=== PATIENT | male | born 1940 | race Caucasian/White ===

== ENCOUNTER 2019-03-02 17:00 | Inpatient (IN) ==
[2019-03-02] MEDS ORDERED: DEXTROSE 50% 50 ML SYRINGE IV ONE ×2 (17:42→20:05)
[2019-03-02] MEDS ORDERED: SODIUM CHLORIDE 0.9% 1000ML 1,000 ML IV SCH (17:45)
--- NOTE | 2019-03-02 18:37 | XRay Report ---
XR chest 1V portable CLINICAL HISTORY: 78 years-old Male presenting with Chest Pain. TECHNIQUE: Portable upright AP view of the chest was obtained. COMPARISON: 05/26/2018. FINDINGS: Atherosclerosis of the aortic arch. Cardiac silhouette normal in size. Persistent elevation of the ri ght hemidiaphragm with persistent platelike opacities at the right lung base. No new focal opacity. N o large effusion or pneumothorax. Osseous structures normal. Surgical clips project over the abdomen. IMPRESSION: 1. Chronic right lung volume loss with basilar atelectasis or scarring. No convincing evidence of ac [place] cardiopulmonary disease. Electronically signed by: Daniel Lowe M.D. 03/02/2019 6:36 PM
[2019-03-02 18:42] LABS: Basophils # (auto) 0.01 K/uL (0-0.2); Basophils % (auto) 0.1 %; Eosinophils # (auto) 0.01 K/uL (0-0.5); Eosinophils % (auto) 0.1 %; Hematocrit (blood only) 38.2 % (42-52); Hemoglobin 12.9 g/dL (14.0-18.0); Immature Granulocytes # (auto) 0.03 K/uL (0.00-0.02); Immature Granulocytes % (auto) 0.2 %; Lymphocytes % (auto) 6.8 %; Mean Corpuscular Hgb Conc 33.8 g/dL (32-36); Mean Corpuscular Volume 106.1 fL (80-100); Mean Platelet Volume 12.1 fL (7.4-10.4); Monocytes # (auto) 1.04 K/uL (0.11-0.59); Monocytes % (auto) 7.9 %; Neutrophils % (auto) 84.9 %; Platelet Count 270 K/uL (130-400); RDW Standard Deviation 54.3 fL (36.4-46.3); White Blood Count 13.19 K/uL (4.8-10.8)
--- NOTE | 2019-03-02 19:21 | CT Scan Report ---
CT head/brain wo con CLINICAL HISTORY: 78 years-old Male presenting with ams, seizure. TECHNIQUE: Multidetector CT imaging of the head was performed without the use of intravenous contrast . IV contrast: None. One or more dose lowering techniques were used consistent with the principles of ALARA (as low as reasonably achievable), including automatic exposure control, mA or kV adjustment t o individual patient size, and/or use of iterative reconstruction. COMPARISON: 05/26/2018. CT DOSE (mGy.cm): The estimated cumulative dose is 537.48 mGy.cm. FINDINGS: [employer] topogram: Unremarkable. Proportional ventricular and sulcal prominence, likely age-related parenchymal volume loss. No hemorr neftali. Brain parenchyma normal in appearance with preserved peters-white differentiation. No acute jarett torial infarct. No mass effect or midline shift. No extra-axial fluid collection. Paranasal sinuses a nd mastoid air cells clear. Calvarium intact. Subgaleal thickening in the left occipital region as on prior. IMPRESSION: 1. No acute intracranial abnormality. Electronically signed by: Daniel Lowe M.D. 03/02/2019 7:20 PM
[2019-03-02 19:42] LABS: INR 1.1 (0.9-1.1); Prothrombin Time 10.9 Seconds (9.0-12.0)
[2019-03-02 20:05] LABS: Alanine Aminotransferase 15 U/L (12-78); Albumin Level 3.4 gm/dl (3.4-5.0); Aspartate Aminotransferase 18 U/L (15-37); BUN Creatinine Ratio 24.7 (10-20); Blood Urea Nitrogen 23 mg/dl (7-18); Calcium 8.4 mg/dl (8.5-10.1); Carbon Dioxide 23 mmol/L (21-32); Chloride 109 mmol/L (98-107); Creatinine Clr Calc Pharmacy 58.5 ml/min; Est GFR (African American) 92.7; Est GFR (Non-African American) 79.9; Glucose 77 mg/dl (70-99); Sodium 138 mmol/L (136-145)
[2019-03-02 20:08] LABS: Albumin Globulin Ratio 0.7 (0.9-2); Alkaline Phosphatase 86 U/L (45-117); Bilirubin,Total 0.3 mg/dl (0.2-1); Globulin 4.7 gm/dl (2.5-4.0); Total Protein 8.1 gm/dl (6.4-8.2); Troponin I < 0.015 ng/ml (0-0.045)
[2019-03-02 20:34] LABS: Magnesium 2.4 mg/dl (1.8-2.4)
[2019-03-02] MEDS ORDERED: PIPERACILL/TAZOBAC CONSULT ACTIVE PRN (20:43)
[2019-03-02] MEDS ORDERED: PIPERACILLIN/TAZOBACTAM 4.5 GM/120 ML BAG IV ONE (20:43)
[2019-03-02] MEDS ORDERED: DIVALPROEX DELAY RELEASE 500 MG TAB PO ONE (21:16)
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
[2019-03-02] MEDS: levETIRAcetam 500 MG TAB PO SCH ×2 (21:55→22:02)
--- NOTE | 2019-03-02 22:12 | Emergency Department Note ---
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 is in excess of all separately billable procedures. Discharge Plan Visit Data Chief Complaint: Confusion Stated Complaint: AMS ED Provider: Denny Rdz Discharge Problem: Hypothermia, Hypoglycemia, Seizure Patient Disposition: Being Evaluated by Hospitalist Discharge Instructions Interventions: ED Discharge Assessment Last Done: 03/03/19 01:04 The scribe's documentation has been prepared under my direction and personally reviewed by me in its entirety. I confirm that the note above accurately reflects all work, treatment, procedures, and medical decision making performed by me.
[2019-03-02] MEDS ORDERED: SODIUM CHLORIDE 0.9% 1000ML 1,000 ML IV ONE (23:26)
[2019-03-02] MEDS ORDERED: CALCIUM GLUCONATE 10% 1,000 MG in SODIUM CHLORIDE 0.9% 50 ML IV STA (23:37)
[2019-03-03] MEDS ORDERED: LORazepam 1 MG/2 ML VIAL IV PRN (01:32)
[2019-03-03] MEDS ORDERED: CARBOHYDRATES FOR HYPOGLYCEMIA PO PRN (01:32)
[2019-03-03] MEDS ORDERED: SODIUM CHLORIDE 0.9% 1000ML 1,000 ML IV ONE ×4 (01:32→22:10)
[2019-03-03] MEDS ORDERED: NITROGLYCERIN SL 0.4 MG/TAB TAB SL PRN (01:32)
[2019-03-03] MEDS ORDERED: GLUCOSE 40% GEL 15 GM TUBE PO PRN (01:32)
[2019-03-03] MEDS ORDERED: OXYCODONE HCL IR 5 MG TAB (IMMEDIATE RELEASE) PO PRN (01:32)
[2019-03-03] MEDS ORDERED: DEXTROSE 50% 50 ML SYRINGE IV PRN (01:32)
[2019-03-03] MEDS ORDERED: GLUCAGON FOR INJ 1 MG VIAL SQ PRN (01:32)
[2019-03-03] MEDS ORDERED: ACETAMINOPHEN 325 MG TAB PO PRN (01:32)
[2019-03-03] MEDS ORDERED: GLUCOSE 10 TABS/TUBE PO PRN (01:32)
[2019-03-03] MEDS: INSULIN ASPART 100 UNITS/ML 3 ML PEN SC SCH ×5 (02:37→21:24)
[2019-03-03 04:15] LABS: BUN Creatinine Ratio 23.9 (10-20); Calcium 7.9 mg/dl (8.5-10.1); Creatinine Clr Calc Pharmacy 70.8 ml/min; Potassium 5.7 mmol/L (3.5-5.1)
[2019-03-03 04:46] LABS: Eosinophils # (auto) 0.01 K/uL (0-0.5); Eosinophils % (auto) 0.1 %; Hematocrit (blood only) 30.2 % (42-52); Hemoglobin 9.9 g/dL (14.0-18.0); Immature Granulocytes # (auto) 0.03 K/uL (0.00-0.02); Immature Granulocytes % (auto) 0.2 %; Lymphocytes # (auto) 2.16 K/uL (1.2-3.4); Lymphocytes % (auto) 15.9 %; Mean Corpuscular Hgb Conc 32.8 g/dL (32-36); Mean Corpuscular Volume 104.1 fL (80-100); Mean Platelet Volume 10.9 fL (7.4-10.4); Monocytes # (auto) 1.15 K/uL (0.11-0.59); Monocytes % (auto) 8.5 %; Neutrophils # (auto) 10.22 K/uL (1.4-6.5); Neutrophils % (auto) 75.3 %; Platelet Count 243 K/uL (130-400); RDW Coefficient of Variation 13.3 % (11.5-14.5); RDW Standard Deviation 50.5 fL (36.4-46.3); White Blood Count 13.57 K/uL (4.8-10.8)
[2019-03-03] MEDS: LEVOTHYROXINE SODIUM 50 MCG TABLET PO SCH (05:44)
[2019-03-03] MEDS ORDERED: INSULIN HUMAN REGULAR PER UNIT 5 UNITS in SYRINGE 4.95 ML IV ONE (06:07)
[2019-03-03] MEDS ORDERED: DEXTROSE 50% 50 ML SYRINGE IV ONE (06:07)
[2019-03-03] MEDS ORDERED: AMLODIPINE BESYLATE 5 MG TAB PO SCH (06:10)
[2019-03-03 06:38] LABS: Potassium 5.8 mmol/L (3.5-5.1)
[2019-03-03 06:47] LABS: Ferritin 163.2 ng/ml (8-388)
[2019-03-03 07:29] LABS: Estimated Average Glucose 200 mg/dl; Hemoglobin A1C 8.6 % (4.5-5.6)
[2019-03-03 08:15] LABS: Reticulocyte % 1.9 % (0.5-2.0); Reticulocytes # 0.06 10^6/uL (0.02-0.10)
[2019-03-03 08:56] LABS: Folate (Folic Acid) 16.96 ng/ml (>5.38)
[2019-03-03] MEDS: ASPIRIN 81 MG ECTAB PO SCH (08:57)
[2019-03-03] MEDS: DIVALPROEX DELAY RELEASE 500 MG TAB PO SCH ×2 (08:57→22:00)
[2019-03-03] MEDS: DONEPEZIL HCL 10 MG TAB PO SCH (08:57)
[2019-03-03] MEDS: levETIRAcetam 500 MG TAB PO SCH ×2 (08:57→22:00)
[2019-03-03] MEDS ORDERED: INSULIN GLARGINE SOLOSTAR 100 UNITS/ML 3 ML PEN SQ SCH (09:00)
[2019-03-03] MEDS ORDERED: DEXTROSE 50% 50 ML SYRINGE IV STA (10:32)
[2019-03-03] MEDS ORDERED: NovoLIN-R INSULIN PER UNIT CHARGE IV STA (10:32)
[2019-03-03] MEDS ORDERED: SODIUM CHLORIDE 0.9% 1000ML 1,000 ML IV SCH (10:45)
[2019-03-03] MEDS ORDERED: INSULIN HUMAN REGULAR PER UNIT 10 UNITS in SYRINGE 9.9 ML IV ONE (11:00)
[2019-03-03 16:43] LABS: Calcium 8.5 mg/dl (8.5-10.1); Creatinine Clr Calc Pharmacy 69.9 ml/min; Est GFR (African American) 101.5; Est GFR (Non-African American) 87.5; Potassium 5.2 mmol/L (3.5-5.1)
--- NOTE | 2019-03-03 16:46 | Hospitalist Progress Note ---
Date of Service March 03, 2019 Assessment & Plan (1) Altered mental status: Presented with change in mental status Complicated by schizoaffective disorder-bipolar type Remains stable since admission (2) Hypoglycemia: This is a 78 year old incarcerated M who has a significant PMH of Schizoaffective bipolar type, IDDM2, Mild MR, Seizure disorder, HTN, Incontinence, Dementia, Tremors who presents to [facility] ED after being found on floor at [facility]. Per minesweeping officer patient was found on floor in longterm and found to be shaking. His blood sugar was in 50s. Shaking is not abnormal for patient as he does have significant tremors but there was question if there was seizure-like activity. Symptoms likely secondary to hypoglycemia Doubt any seizure activity-anticonvulsant levels so far remains within normal range We will continue with current medications for seizures Depakote level WNL, Keppra level pending Symptoms likely secondary to hypoglycemia although sepsis not entirely ruled out. Blood cultures pending and urine cultures to be obtained. In addition to the dextrose in ED patient also received a dose of Depakote and Keppra along with IV Zosyn and 1 L of IVF. Please refer to Dr. Almanza addendum for further details regarding assessment and plan (3) Diabetes: unknown A1C Recommend obtain A1C Hold insulin for now given significant hypoglycemia and re evaluate Has been having hypoglycemic episodes We will decrease the dose of insulin (4) Seizure: Depakote level WNL, Keppra level pending Continue Depakote and Keppra Seizure precaution No more seizures in the hospital We will continue current medications (5) Schizophrenia: Continue Depakote, mood stable (6) Dementia: Continue Aricept (7) Hypothyroidism: Continue levothyroxine (8) HTN (hypertension): Continue Losartan (9) DVT prophylaxis: SCDs for now (10) Hyperkalemia: Potassium noted to be high at 5.8 With normal kidney function Insulin plus dextrose were given IV Recheck at around 4 PM-potassium came down to 5.2 Subjective 03/03 Patient to medical telemetry unit This is a 78 year old incarcerated M who has a significant PMH of Schizoaffective bipolar type, IDDM2, Mild MR, Seizure disorder, HTN, Incontinence, Dementia, Tremors who presents to [facility] ED after being found on floor at [facility]term. He was found to be shaking on the floor before admission with a blood sugar of 50 Has been feeling a lot better this morning Denies any significant symptom Review of Systems Review of Systems: All systems reviewed and are unremarkable except as noted below Constitutional: + weakness Respiratory: no cough and no dyspnea Cardiovascular: no chest pain Neurologic: Alert and awake. Physical Exam Physical Exam: No apparent distress at rest Constitutional: + ill appearing; no acute distress Eyes: PERRL, conjunctivae normal, anicteric sclerae ENMT: external ear and nose normal, oropharynx normal Neck: trachea midline, no thyromegaly Respiratory: normal respiratory effort; no respiratory distress Auscultation: lungs clear to auscultation bilaterally Cardiovascular: Rate/Rhythm: regular rate and regular rhythm Heart Sounds: no murmur Gastrointestinal (Abdomen): Inspection/Auscultation: abdomen normal to inspection and normal bowel sounds Percussion/Palpation: abdomen soft Neurologic: moves all extremities Results & Data Vital Signs (Past 12 Hours) Vital Signs Temp Pulse Pulse Resp BP Pulse Ox 03/03/19 16:18 36.6 C 69 18 141/68 H 96 03/03/19 12:21 36.6 C 88 18 166/70 H 97 03/03/19 07:02 36.7 C 74 22 128/62 91 Laboratory Results Short CBC 03/02/19 03/03/19 Range/Units 18:12 03:38 WBC 13.19 H 13.57 H (4.8-10.8) K/uL Hgb 12.9 L 9.9 L D (14.0-18.0) g/dL Hct 38.2 L 30.2 L (42-52) % Plt Count 270 243 (130-400) K/uL BMP 03/02/19 03/03/19 03/03/19 19:17 03:38 03:38 Sodium 138 134 L Potassium 5.0 5.7 H 5.8 H Chloride 109 H 108 H Carbon Dioxide 23 25 BUN 23 H 18 Creatinine 0.92 0.76 Glucose 77 105 H Calcium 8.4 L 7.9 L 03/03/19 16:01 Sodium 138 Potassium 5.2 H Chloride 108 H Carbon Dioxide 26 BUN 12 Creatinine 0.77 Glucose 37 L* Calcium 8.5 Cardiac Enzymes 03/02/19 03/03/19 Range/Units 19:17 03:38 Total Creatine Kinase 138 (39-308) U/L Troponin I < 0.015 (0-0.045) ng/ml Liver Function 03/02/19 Range/Units 19:17 Total Bilirubin 0.3 (0.2-1) mg/dl AST 18 (15-37) U/L ALT 15 (12-78) U/L Alkaline Phosphatase 86 (45-117) U/L Albumin 3.4 (3.4-5.0) gm/dl Medications Administered Current Inpatient Medications Acetaminophen (Tylenol) 650 mg PO Q4H PRN PRN Reason: Pain or Fever Stop: 04/02/19 01:31 Amlodipine Besylate (Norvasc) 2.5 mg PO [facility] Stop: 04/02/19 06:09 Last Admin: 03/03/19 06:45 Dose: 2.5 mg Documented by: Aspirin (Ecotrin Ectab) 81 mg PO [facility] Stop: 04/02/19 08:59 Last Admin: 03/03/19 08:57 Dose: 81 mg Documented by: Dextrose (Dextrose 50%) 25 - 50 ml IV UD PRN; Protocol PRN Reason: Hypoglycemia Protocol Stop: 04/02/19 01:31 Divalproex Sodium (Depakote Delay Release) 1,000 mg PO BID [facility] Stop: 04/02/19 08:59 Last Admin: 03/03/19 08:57 Dose: 1,000 mg Documented by: Donepezil HCl (Aricept) [facility] Stop: 04/02/19 08:59 Last Admin: 03/03/19 08:57 Dose: 10 mg Documented by: Enoxaparin Sodium (Lovenox) 30 mg SQ [facility] Stop: 04/03/19 08:59 Glucagon (Glucagen) 1 mg SQ UD PRN; Protocol PRN Reason: Hypoglycemia Protocol Stop: 04/02/19 01:31 Glucose (Glucose 40%) 15 - 30 gm PO UD PRN; Protocol PRN Reason: Hypoglycemia Protocol Stop: 04/02/19 01:31 Glucose (Dex4 Glucose) 4 - 8 tabs PO UD PRN; Protocol PRN Reason: Hypoglycemia Protocol Stop: 04/02/19 01:31 Lorazepam (Ativan) 1 mg in 2 mls @ 0.5 mls/min IV Q10M PRN PRN Reason: seizures Stop: 04/02/19 01:31 Sodium Chloride (Nss 1000ml) 1,000 mls @ 80 mls/hr IV .[id number] ONE Stop: 03/03/19 23:29 Last Admin: 03/03/19 10:33 Dose: 80 mls/hr Documented by: Insulin Aspart (Novolog Flexpen) 0 units SC ACHS [facility] Stop: 04/02/19 01:31 Last Admin: 03/03/19 11:50 Dose: Not Given Documented by: Insulin Glargine (Lantus Solostar Pen) 5 units SQ DAILY [facility] Stop: 04/02/19 08:59 Last Admin: 03/03/19 09:51 Dose: 5 units Documented by: Levetiracetam (Keppra) 1,000 mg PO QAM [facility] Stop: 04/02/19 08:59 Last Admin: 03/02/19 22:02 Dose: 1,000 mg Documented by: Levetiracetam (Keppra) 1,000 mg PO BID [facility] Stop: 04/02/19 08:59 Last Admin: 03/03/19 08:57 Dose: 1,000 mg Documented by: Levothyroxine Sodium (Synthroid) 50 mcg PO DAILYBB [facility] Stop: 04/02/19 06:29 Last Admin: 03/03/19 05:44 Dose: 50 mcg Documented by: Miscellaneous (Carbohydrates For Hypoglycemia) 15 - 30 gm PO UD PRN PRN Reason: Hypoglycemia Treatment Stop: 04/02/19 01:31 Nitroglycerin (Nitrostat) 0.4 mg SL UD PRN PRN Reason: Chest Pain Stop: 04/02/19 01:31 Oxycodone HCl (Roxicodone Immediate Rel) 5 mg PO Q4H PRN PRN Reason: Pain Stop: 03/17/19 01:31
[2019-03-03] MEDS ORDERED: D5W AND 1/2NSS 1,000 ML IV SCH (18:15)
[2019-03-03] MEDS ORDERED: D5W AND NSS 1,000 ML IV SCH (20:15)
--- NOTE | 2019-03-03 21:30 | XRay Report ---
XR chest 1V portable CLINICAL HISTORY: 78 years-old Male presenting with low o2. TECHNIQUE: Portable upright AP view of the chest was obtained. COMPARISON: 03/02/2019. FINDINGS: Atherosclerosis of the aortic arch. Cardiac silhouette normal in size. Chronic elevation of the right hemidiaphragm with low lung volume on the right. No focal opacity. No large effusion or pneumothorax . Osseous structures normal. Upper abdomen normal. IMPRESSION: 1. No acute cardiopulmonary disease. Electronically signed by: Daniel Lowe M.D. 03/03/2019 9:29 PM
[2019-03-04] MEDS: INSULIN ASPART 100 UNITS/ML 3 ML PEN SC SCH ×6 (00:04→22:41)
[2019-03-04] MEDS ORDERED: PIPERACILL/TAZOBAC CONSULT ACTIVE PRN (00:26)
[2019-03-04] MEDS ORDERED: PIPERACILLIN/TAZOBACTAM 4.5 GM/120 ML BAG IV ONE (00:26)
--- NOTE | 2019-03-04 00:26 | Hospitalist Progress Note ---
Date of Service March 04, 2019 Subjective Patient still with intermittent hypoglycemic episodes off home insulin. Intermittent tachycardia, persistent leukocytosis Hemoglobin A1c 8.6. AP Hypoglycemic episodes ? secondary to sepsis Possible UTI Uncooperative patient with cognitive impairment unwilling to submit a UA specimen or cooperate with straight catheterization. Initiate IV Zosyn for possible UTI. Will relay to AM provider. Results & Data Vital Signs (Past 12 Hours) Vital Signs Temp Pulse Pulse Resp BP Pulse Ox 03/03/19 23:18 37 C 104 H 24 160/82 H 93 03/03/19 23:02 91 H 03/03/19 19:15 36.9 C 89 16 143/72 H 88 L 03/03/19 16:18 36.6 C 69 18 141/68 H 96
[2019-03-04 00:50] LABS: BUN Creatinine Ratio 13.1 (10-20); Calcium 8.1 mg/dl (8.5-10.1); Creatinine Clr Calc Pharmacy 59.1 ml/min; Est GFR (African American) 93.9; Potassium 5.5 mmol/L (3.5-5.1)
[2019-03-04] MEDS: AMLODIPINE BESYLATE 5 MG TAB PO SCH (02:01)
[2019-03-04] MEDS ORDERED: SODIUM CHLORIDE 0.9% 1000ML 1,000 ML IV ONE (03:07)
[2019-03-04] MEDS: PIPERACILLIN/TAZOBACTAM 3.375 GM in DEXTROSE 5% 100 ML IV SCH ×3 (05:37→22:44)
[2019-03-04] MEDS: LEVOTHYROXINE SODIUM 50 MCG TABLET PO SCH (05:37)
[2019-03-04] MEDS: DONEPEZIL HCL 10 MG TAB PO SCH (08:23)
[2019-03-04] MEDS: ASPIRIN 81 MG ECTAB PO SCH (08:23)
[2019-03-04] MEDS: levETIRAcetam 500 MG TAB PO SCH ×2 (08:23→22:20)
[2019-03-04] MEDS: ENOXAPARIN INJ 30 MG/0.3 ML SYR SQ SCH (08:23)
[2019-03-04] MEDS: DIVALPROEX DELAY RELEASE 500 MG TAB PO SCH ×2 (08:23→22:21)
--- NOTE | 2019-03-04 16:57 | Hospitalist Progress Note ---
Date of Service March 04, 2019 Assessment & Plan (1) Altered mental status: Presented with change in mental status Doubt any seizure activity-anticonvulsant levels so far remains within normal range Complicated by schizoaffective disorder-bipolar type Remains stable since admission History of UTI before Urinalysis history of infection Urine culture has not been stented Started on intravenous Zosyn (2) Hypoglycemia: This is a 78 year old incarcerated M who has a significant PMH of Schizoaffective bipolar type, IDDM2, Mild MR, Seizure disorder, HTN, Incontinence, Dementia, Tremors who presents to [facility] ED after [facility] at [facility]. Per correctional therapy director patient was found on floor in [facility] and found to be shaking. His blood sugar was in 50s. Shaking is not abnormal for patient as he does have significant tremors but there was question if there was seizure-like activity. Symptoms likely secondary to hypoglycemia He has been on intravenous glucose infusion to prevent hypoglycemia and his insulin has been on hold Has had hypoglycemic episode last night No new symptoms Depakote level WNL, Keppra level pending Symptoms likely secondary to hypoglycemia although sepsis not entirely ruled out. Blood cultures pending and urine cultures to be obtained. In addition to the dextrose in ED patient also received a dose of Depakote and Keppra along with IV Zosyn and 1 L of IVF. Please refer to Dr. Almanza addendum for further details regarding assessment and plan (3) Diabetes: unknown A1C Recommend obtain A1C-8.6 Hold insulin for now given significant hypoglycemia and re evaluate Has been having hypoglycemic episodes We will decrease the dose of insulin which is on hold now (4) Seizure: Depakote level WNL, Keppra level pending Continue Depakote and Keppra Seizure precaution No more seizures in the hospital We will continue current medications (5) Schizophrenia: Continue Depakote, mood stable (6) Dementia: Continue Aricept (7) Hypothyroidism: Continue levothyroxine (8) HTN (hypertension): Continue Losartan (9) DVT prophylaxis: SCDs for now (10) Hyperkalemia: Potassium noted to be high at 5.8 With normal kidney function Insulin plus dextrose were given IV Recheck at around 4 PM-potassium came down to 5.2 Potassium level is 4.9 today Subjective 03/03 Patient to medical telemetry unit This is a 78 year old incarcerated M who has a significant PMH of Schizoaffective bipolar type, IDDM2, Mild MR, Seizure disorder, HTN, Incontinence, Dementia, Tremors who presents to [facility] ED after being found on floor at [facility]. He was found to be shaking on the floor before admission with a blood sugar of 50 Has been feeling a lot better this morning Denies any significant symptom 03/04 The patient is seen and examined in medical telemetry He was noted to have low blood sugar again last night while still on IV dextrose We will hold off any insulin for now Denies any other symptoms Review of Systems Review of Systems: All systems reviewed and are unremarkable except as noted below Constitutional: + weakness Neurologic: Alert and awake. Physical Exam Physical Exam: Remains in bed without any acute symptoms Constitutional: + ill appearing; no acute distress Eyes: PERRL, conjunctivae normal, anicteric sclerae ENMT: external ear and nose normal, oropharynx normal Neck: trachea midline, no thyromegaly Respiratory: normal respiratory effort; no respiratory distress Auscultation: lungs clear to auscultation bilaterally Cardiovascular: Rate/Rhythm: regular rate and regular rhythm Heart Sounds: no murmur Gastrointestinal (Abdomen): Inspection/Auscultation: abdomen normal to inspect ion and normal bowel sounds Percussion/Palpation: abdomen soft Neurologic: moves all extremities Has intellectual impairment. Cannot express himself fully Results & Data Vital Signs (Past 12 Hours) Vital Signs Temp Pulse Resp BP Pulse Ox 03/04/19 16:00 36.7 C 87 18 143/74 H 90 03/04/19 13:07 36.8 C 91 H 18 135/81 91 03/04/19 07:13 36.7 C 82 17 132/85 96 Laboratory Results [facility] 03/04/19 03/04/19 03/04/19 00:23 06:08 07:09 Sodium 136 Potassium 5.5 H Cancelled 4.9 Chloride 107 Carbon Dioxide 27 BUN 12 Creatinine 0.91 Glucose 119 H Calcium 8.1 L Medications Administered Current Inpatient Medications Acetaminophen (Tylenol) 650 mg PO Q4H PRN PRN Reason: Pain or Fever Stop: 04/02/19 01:31 Amlodipine Besylate ([facility]asc) [facility] Stop: 04/03/19 01:29 Last Admin: 03/04/19 02:01 Dose: 5 mg Documented by: Aspirin (Ecotrin Ectab) 81 mg PO QAM [facility] Stop: 04/02/19 08:59 Last Admin: 03/04/19 08:23 Dose: 81 mg Documented by: Dextrose (Dextrose 50%) 25 - 50 ml IV UD PRN; Protocol PRN Reason: Hypoglycemia Protocol Stop: 04/02/19 01:31 Last Admin: 03/03/19 17:05 Dose: 50 ml Documented by: Divalproex Sodium (Depakote Delay Release) 1,000 mg PO BID [facility] Stop: 04/02/19 08:59 Last Admin: 03/04/19 08:23 Dose: 1,000 mg Documented by: Donepezil HCl (Aricept) 10 mg PO QAM [facility] Stop: 04/02/19 08:59 Last Admin: 03/04/19 08:23 Dose: 10 mg Documented by: Enoxaparin Sodium (Lovenox) 30 mg SQ QAM [facility] Stop: 04/03/19 08:59 Last Admin: 03/04/19 08:23 Dose: 30 mg Documented by: Glucagon (Glucagen) 1 mg SQ UD PRN; Protocol PRN Reason: Hypoglycemia Protocol Stop: 04/02/19 01:31 Glucose (Glucose 40%) 15 - 30 gm PO UD PRN; Protocol PRN Reason: Hypoglycemia Protocol Stop: 04/02/19 01:31 Glucose (Dex4 Glucose) 4 - 8 tabs PO UD PRN; Protocol PRN Reason: Hypoglycemia Protocol Stop: 04/02/19 01:31 Lorazepam (Ativan) 1 mg in 2 mls @ 0.5 mls/min IV Q10M PRN PRN Reason: seizures Stop: 04/02/19 01:31 Piperacillin Sod/Tazobactam (Sod 3.375 gm/ Dextrose) 115 mls @ 28.75 mls/hr IV Q8 [facility]; Protocol Stop: 03/06/19 05:59 Last Admin: 03/04/19 13:39 Dose: 28.8 mls/hr Documented by: Insulin Aspart (Novolog Flexpen) 0 units SC Q4 [facility] Stop: 04/02/19 20:14 Last Admin: 03/04/19 11:58 Dose: Not Given Documented by: Insulin Glargine (Lantus Solostar Pen) 5 units SQ DAILY [facility] Stop: 04/02/19 08:59 Last Admin: 03/03/19 09:51 Dose: 5 units Documented by: Levetiracetam (Keppra) 1,000 mg PO QAM [facility] Stop: 04/02/19 08:59 Last Admin: 03/02/19 22:02 Dose: 1,000 mg Documented by: Levetiracetam (Keppra) 1,000 mg PO BID [facility] Stop: 04/02/19 08:59 Last Admin: 03/04/19 08:23 Dose: 1,000 mg Documented by: Levothyroxine Sodium (Synthroid) 50 mcg PO DAILYBB [facility] Stop: 04/02/19 06:29 Last Admin: 03/04/19 05:37 Dose: 50 mcg Documented by: Miscellaneous (Carbohydrates For Hypoglycemia) 15 - 30 gm PO UD PRN PRN Reason: Hypoglycemia Treatment Stop: 04/02/19 01:31 Last Admin: 03/03/19 17:33 Dose: 30 gm Documented by: Miscellaneous Information (Consult) 1 ea N/A UD PRN PRN Reason: Consult Stop: 04/03/19 00:25 Nitroglycerin (Nitrostat) 0.4 mg SL UD PRN PRN Reason: Chest Pain Stop: 04/02/19 01:31 Oxycodone HCl (Roxicodone Immediate Rel) 5 mg PO Q4H PRN PRN Reason: Pain Stop: 03/17/19 01:31
[2019-03-04] MEDS ORDERED: INSULIN GLARGINE SOLOSTAR 100 UNITS/ML 3 ML PEN SC STA (22:49)
[2019-03-05] MEDS: INSULIN ASPART 100 UNITS/ML 3 ML PEN SC SCH ×6 (00:27→21:58)
[2019-03-05] MEDS: PIPERACILLIN/TAZOBACTAM 3.375 GM in DEXTROSE 5% 100 ML IV SCH ×3 (05:53→21:54)
[2019-03-05] MEDS: LEVOTHYROXINE SODIUM 50 MCG TABLET PO SCH (05:53)
[2019-03-05 07:06] LABS: Basophils # (auto) 0.01 K/uL (0-0.2); Basophils % (auto) 0.1 %; Eosinophils # (auto) 0.32 K/uL (0-0.5); Eosinophils % (auto) 2.8 %; Hematocrit (blood only) 32.6 % (42-52); Immature Granulocytes # (auto) 0.03 K/uL (0.00-0.02); Immature Granulocytes % (auto) 0.3 %; Lymphocytes # (auto) 2.14 K/uL (1.2-3.4); Lymphocytes % (auto) 18.9 %; Mean Corpuscular Hgb Conc 33.7 g/dL (32-36); Mean Corpuscular Volume 102.5 fL (80-100); Mean Platelet Volume 10.5 fL (7.4-10.4); Monocytes # (auto) 0.73 K/uL (0.11-0.59); Monocytes % (auto) 6.4 %; Neutrophils # (auto) 8.11 K/uL (1.4-6.5); Neutrophils % (auto) 71.5 %; Platelet Count 259 K/uL (130-400); RDW Coefficient of Variation 13.3 % (11.5-14.5); RDW Standard Deviation 50.1 fL (36.4-46.3); Red Blood Count 3.18 M/uL (4.7-6.1); White Blood Count 11.34 K/uL (4.8-10.8)
[2019-03-05 07:36] LABS: BUN Creatinine Ratio 17.6 (10-20); Calcium 8.7 mg/dl (8.5-10.1); Est GFR (African American) 98.9; Est GFR (Non-African American) 85.3; Potassium 4.6 mmol/L (3.5-5.1)
[2019-03-05] MEDS: DIVALPROEX DELAY RELEASE 500 MG TAB PO SCH ×2 (09:19→21:54)
[2019-03-05] MEDS: ASPIRIN 81 MG ECTAB PO SCH (09:20)
[2019-03-05] MEDS: levETIRAcetam 500 MG TAB PO SCH ×3 (09:20→21:56)
[2019-03-05] MEDS: DONEPEZIL HCL 10 MG TAB PO SCH (09:22)
[2019-03-05] MEDS: AMLODIPINE BESYLATE 5 MG TAB PO SCH (09:23)
[2019-03-05] MEDS: ENOXAPARIN INJ 30 MG/0.3 ML SYR SQ SCH (09:23)
[2019-03-05] MEDS ORDERED: Nursing to Pharmacy Communication ONE (10:33)
--- NOTE | 2019-03-05 13:59 | Hospitalist Progress Note ---
Date of Service March 05, 2019 Assessment & Plan (1) Altered mental status: Presented with change in mental status Doubt any seizure activity-anticonvulsant levels so far remains within normal range Complicated by schizoaffective disorder-bipolar type Remains stable since admission He seems to be at his baseline History of UTI before Urinalysis history of infection Urine culture has not been stented Started on intravenous Zosyn Clinically no signs of infection (2) Hypoglycemia: This is a 78 year old incarcerated M who has a significant PMH of Schizoaffective bipolar type, IDDM2, Mild MR, Seizure disorder, HTN, Incontinence, Dementia, Tremors who presents to [facility] ED after being found on floor at senior living. Per corporate officer patient was found on floor in senior living and found to be shaking. His blood sugar was in 50s. Shaking is not abnormal for patient as he does have significant tremors but there was question if there was seizure-like activity. Symptoms likely secondary to hypoglycemia He has been on intravenous glucose infusion to prevent hypoglycemia and his insulin has been on hold Has had hypoglycemic episode last night No new symptoms Continues to have low sugar Depakote level WNL, Keppra level pending Symptoms likely secondary to hypoglycemia although sepsis not entirely ruled out. Blood cultures pending and urine cultures to be obtained. In addition to the dextrose in ED patient also received a dose of Depakote and Keppra along with IV Zosyn and 1 L of IVF. Please refer to Dr. Almanza addendum for further details regarding assessment and plan (3) Diabetes: unknown A1C Recommend obtain A1C-8.6 Hold insulin for now given significant hypoglycemia and re evaluate Has been having hypoglycemic episodes We will decrease the dose of insulin which is on hold now We will discontinue insulin for now (4) Seizure: Depakote level WNL, Keppra level pending Continue Depakote and Keppra Seizure precaution No more seizures in the hospital We will continue current medications (5) Schizophrenia: Continue Depakote, mood stable (6) Dementia: Continue Aricept (7) Hypothyroidism: Continue levothyroxine (8) HTN (hypertension): Continue Losartan (9) DVT prophylaxis: SCDs for now (10) Hyperkalemia: Potassium noted to be high at 5.8 With normal kidney function Insulin plus dextrose were given IV Recheck at around 4 PM-potassium came down to 5.2 Potassium level is 4.9 today Likely discharge on Thursday Subjective 03/03 Patient to medical telemetry unit This is a 78 year old incarcerated M who has a significant PMH of Schizoaffective bipolar type, IDDM2, Mild MR, Seizure disorder, HTN, Incontinence, Dementia, Tremors who presents to [facility] ED after being found on floor at senior living. He was found to be shaking on the floor before admission with a blood sugar of 50 Has been feeling a lot better this morning Denies any significant symptom 03/04 The patient is seen and examined in medical telemetry He was noted to have low blood sugar again last night while still on IV dextrose We will hold off any insulin for now Denies any other symptoms 03/05 The patient was seen and examined in medical floor He did not have any significant symptoms and his blood sugar remains in the lower side He has not been eating well and is still on D5 drip We will discontinue his insulin and push for more diet Review of Systems Review of Systems: Not possible due to intellectual inability Physical Exam Physical Exam: Lying in bed comfortably Constitutional: no acute distress Eyes: PERRL, conjunctivae normal, anicteric sclerae ENMT: external ear and nose normal, oropharynx normal Neck: trachea midline, no thyromegaly Respiratory: normal respiratory effort; no respiratory distress Auscultation: lungs clear to auscultation bilaterally Cardiovascular: Rate/Rhythm: regular rate and regular rhythm Heart Sounds: no murmur Gastrointestinal (Abdomen): Inspection/Auscultation: abdomen normal to inspection and normal bowel sounds Percussion/Palpation: abdomen soft Neurologic: moves all extremities Results & Data Vital Signs (Past 12 Hours) Vital Signs Temp Pulse Resp BP Pulse Ox 03/05/19 07:44 36.8 C 61 18 161/79 H 96 03/05/19 03:55 36.9 C 77 18 171/65 H 95 Laboratory Results Short CBC 03/05/19 Range/Units 06:43 WBC 11.34 H (4.8-10.8) K/uL Hgb 11.0 L (14.0-18.0) g/dL Hct 32.6 L (42-52) % Plt Count 259 (130-400) K/uL BMP 03/05/19 06:43 Sodium 138 Potassium 4.6 Chloride 106 Carbon Dioxide 26 BUN 14 Creatinine 0.82 Glucose 97 Calcium 8.7 Medications Administered Current Inpatient Medications Acetaminophen (Tylenol) 650 mg PO Q4H PRN PRN Reason: Pain or Fever Stop: 04/02/19 01:31 Amlodipine Besylate (Norvasc) 5 mg PO [facility] Stop: 04/03/19 01:29 Last Admin: 03/05/19 09:23 Dose: 5 mg Documented by: Aspirin (Ecotrin Ectab) [facility] Stop: 04/02/19 08:59 Last Admin: 03/05/19 09:20 Dose: 81 mg Documented by: Dextrose (Dextrose 50%) 25 - 50 ml IV UD PRN; Protocol PRN Reason: Hypoglycemia Protocol Stop: 04/02/19 01:31 Last Admin: 03/03/19 17:05 Dose: 50 ml Documented by: Divalproex Sodium (Depakote Delay Release) 1,000 mg PO BID [facility] Stop: 04/02/19 08:59 Last Admin: 03/05/19 09:19 Dose: 1,000 mg Documented by: Donepezil HCl (Aricept) 10 mg PO [facility] Stop: 04/02/19 08:59 Last Admin: 03/05/19 09:22 Dose: 10 mg Documented by: Enoxaparin Sodium (Lovenox) 30 mg SQ [facility] Stop: 04/03/19 08:59 Last Admin: 03/05/19 09:23 Dose: 30 mg Documented by: Glucagon (Glucagen) 1 mg SQ UD PRN; Protocol PRN Reason: Hypoglycemia Protocol Stop: 04/02/19 01:31 Glucose (Glucose 40%) 15 - 30 gm PO UD PRN; Protocol PRN Reason: Hypoglycemia Protocol Stop: 04/02/19 01:31 Glucose (Dex4 Glucose) 4 - 8 tabs PO UD PRN; Protocol PRN Reason: Hypoglycemia Protocol Stop: 04/02/19 01:31 Lorazepam (Ativan) 1 mg in 2 mls @ 0.5 mls/min IV Q10M PRN PRN Reason: seizures Stop: 04/02/19 01:31 Piperacillin Sod/Tazobactam (Sod 3.375 gm/ Dextrose) 115 mls @ 28.75 mls/hr IV Q8 [facility]; Protocol Stop: 03/06/19 05:59 Last Admin: 03/05/19 13:56 Dose: 28.8 mls/hr Documented by: Insulin Aspart (Novolog Flexpen) 0 units SC ACHS [facility] Stop: 04/04/19 11:29 Last Admin: 03/05/19 12:02 Dose: Not Given Documented by: Insulin Glargine (Lantus Solostar Pen) 5 units SQ HS [facility] Stop: 04/04/19 20:59 Levetiracetam (Keppra) 1,000 mg PO QAM [facility] Stop: 04/02/19 08:59 Last Admin: 03/05/19 09:20 Dose: 1,000 mg Documented by: Levetiracetam (Keppra) 1,000 mg PO BID [facility] Stop: 04/02/19 08:59 Last Admin: 03/05/19 09:21 Dose: 1,000 mg Documented by: Levothyroxine Sodium (Synthroid) 50 mcg PO DAILYBB [facility] Stop: 04/02/19 06:29 Last Admin: 03/05/19 05:53 Dose: 50 mcg Documented by: Miscellaneous (Carbohydrates For Hypoglycemia) 15 - 30 gm PO UD PRN PRN Reason: Hypoglycemia Treatment Stop: 04/02/19 01:31 Last Admin: 03/03/19 17:33 Dose: 30 gm Documented by: Miscellaneous Information (Consult) 1 ea N/A UD PRN PRN Reason: Consult Stop: 04/03/19 00:25 Nitroglycerin (Nitrostat) 0.4 mg SL UD PRN PRN Reason: Chest Pain Stop: 04/02/19 01:31 Oxycodone HCl (Roxicodone Immediate Rel) 5 mg PO Q4H PRN PRN Reason: Pain Stop: 03/17/19 01:31
[2019-03-05] MEDS: INSULIN GLARGINE SOLOSTAR 100 UNITS/ML 3 ML PEN SQ SCH (21:58)
[2019-03-06] MEDS: LEVOTHYROXINE SODIUM 50 MCG TABLET PO SCH (06:19)
[2019-03-06 07:50] LABS: Creatinine Clr Calc Pharmacy 57.3 ml/min; Est GFR (African American) 91.5; Est GFR (Non-African American) 78.9
[2019-03-06] MEDS: AMLODIPINE BESYLATE 5 MG TAB PO SCH (08:33)
[2019-03-06] MEDS: DONEPEZIL HCL 10 MG TAB PO SCH (08:33)
[2019-03-06] MEDS: ASPIRIN 81 MG ECTAB PO SCH (08:33)
[2019-03-06] MEDS: DIVALPROEX DELAY RELEASE 500 MG TAB PO SCH ×2 (08:34→20:59)
[2019-03-06] MEDS: levETIRAcetam 500 MG TAB PO SCH ×3 (08:34→20:59)
[2019-03-06] MEDS: ENOXAPARIN INJ 30 MG/0.3 ML SYR SQ SCH (08:36)
[2019-03-06] MEDS: INSULIN ASPART 100 UNITS/ML 3 ML PEN SC SCH ×4 (10:29→20:59)
[2019-03-06] MEDS: LISINOPRIL 5 MG TAB PO SCH (11:22)
[2019-03-06] MEDS ORDERED: PIPERACILLIN/TAZOBACTAM 3.375 GM in DEXTROSE 5% 100 ML IV ONE (14:45)
--- NOTE | 2019-03-06 16:17 | Hospitalist Progress Note ---
Date of Service March 06, 2019 Assessment & Plan (1) Altered mental status: Presented with change in mental status Doubt any seizure activity-anticonvulsant levels so far remains within normal range Complicated by schizoaffective disorder-bipolar type Remains stable since admission He seems to be at his baseline History of UTI before Urinalysis history of infection Urine culture has not been stented Started on intravenous Zosyn Clinically no signs of infection We will continue intravenous Zosyn for 5 days in total (2) Hypoglycemia: This is a 78 year old incarcerated M who has a significant PMH of Schizoaffective bipolar type, IDDM2, Mild MR, Seizure disorder, HTN, Incontinence, Dementia, Tremors who presents to [facility] ED after being found on floor at skilled nursing. Per corrections corporal patient was found on floor in skilled nursing and found to be arminda ing. His blood sugar was in 50s. Shaking is not abnormal for patient as he does have significant tremors but there was question if there was seizure-like activity. Symptoms likely secondary to hypoglycemia He has been on intravenous glucose infusion to prevent hypoglycemia and his insulin has been on hold Has had hypoglycemic episode last night No new symptoms Continues to have low sugar Blood sugar remains stable-we will discontinue long-acting insulin on discharge This may be restarted depending on future blood sugar level Depakote level WNL, Keppra level pending Symptoms likely secondary to hypoglycemia although sepsis not entirely ruled out. Blood cultures pending and urine cultures to be obtained. In addition to the dextrose in ED patient also received a dose of Depakote and Keppra along with IV Zosyn and 1 L of IVF. Please refer to Dr. Almanza addendum for further details regarding assessment and plan (3) Diabetes: Hb A1C-8.6 Hold insulin for now given significant hypoglycemia and re evaluate Has been having hypoglycemic episodes We will decrease the dose of insulin which is on hold now We will discontinue insulin for now Has been getting sliding scale insulin coverage and Lantus has been discontinued (4) Seizure: Depakote level WNL, Keppra level pending Continue Depakote and Keppra Seizure precaution No more seizures in the hospital We will continue current medications (5) Schizophrenia: Continue Depakote, mood stable (6) Dementia: Continue Aricept (7) Hypothyroidism: Continue levothyroxine (8) HTN (hypertension): Continue Losartan (9) DVT prophylaxis: SCDs for now (10) Hyperkalemia: Potassium noted to be high at 5.8 With normal kidney function Insulin plus dextrose were given IV Recheck at around 4 PM-potassium came down to 5.2 Potassium level is 4.9 today Likely discharge on Thursday Subjective 03/03 Patient to medical telemetry unit This is a 78 year old incarcerated M who has a significant PMH of Schizoaffective bipolar type, IDDM2, Mild MR, Seizure disorder, HTN, Incontinence, Dementia, Tremors who presents to [facility] ED after being found on floor at skilled nursing. He was found to be shaking on the floor before admission with a blood sugar of 5 0 Has been feeling a lot better this morning Denies any significant symptom 03/04 The patient is seen and examined in medical telemetry He was noted to have low blood sugar again last night while still on IV dextrose We will hold off any insulin for now Denies any other symptoms 03/05 The patient was seen and examined in medical floor He did not have any significant symptoms and his blood sugar remains in the lower side He has not been eating well and is still on D5 drip We will discontinue his insulin and push for more diet 03/06 Patient was seen and examined Remains stable without any significant symptoms His blood sugar has been stable No more hypoglycemia noted Review of Systems Review of Systems: Not possible due to intellectual inability Constitutional: + weakness Neurologic: Alert and awake. Physical Exam Physical Exam: Lying in bed comfortably covering himself with the quilt Constitutional: no acute distress Eyes: PERRL, conjunctivae normal, anicteric sclerae ENMT: external ear and nose normal, oropharynx normal Neck: trachea midline, no thyromegaly Respiratory: normal respiratory effort; no respiratory distress Auscultation: lungs clear to auscultation bilaterally Cardiovascular: Rate/Rhythm: regular rate and regular rhythm Heart Sounds: no murmur Gastrointestinal (Abdomen): Inspection/Auscultation: abdomen normal to inspection and normal bowel sounds Percussion/Palpation: abdomen soft Neurologic: moves all extremities Communicates but without any meaningful understanding-that is his baseline Results & Data Vital Signs (Past 12 Hours) Vital Signs Temp Pulse Resp BP Pulse Ox 03/06/19 15:34 36.6 C 75 18 179/85 H 95 03/06/19 10:03 157/90 H 03/06/19 07:21 36.6 C 75 18 190/95 H 94 Laboratory Results BMP 03/06/19 06:29 Creatinine 0.93 Medications Administered Current Inpatient Medications Acetaminophen (Tylenol) 650 mg PO Q4H PRN PRN Reason: Pain or Fever Stop: 04/02/19 01:31 A[facility]odip[facility] Bes[facility]) [facility] Stop: 04/03/19 01:29 Last Admin: 03/06/19 08:33 Dose: 5 mg Documented by: Aspirin (Ecotrin Ectab) 81 mg PO QAM [facility] Stop: 04/02/19 08:59 Last Admin: 03/06/19 08:33 Dose: 81 mg Documented by: Dextrose (Dextrose 50%) 25 - 50 ml IV UD PRN; Protocol PRN Reason: Hypoglycemia Protocol Stop: 04/02/19 01:31 Last Admin: 03/03/19 17:05 Dose: 50 ml Documented by: Divalproex Sodium (Depakote Delay Release) 1,000 mg PO BID [facility] Stop: 04/02/19 08:59 Last Admin: 03/06/19 08:34 Dose: 1,000 mg Documented by: Donepezil HCl (Aricept) [facility] Stop: 04/02/19 08:59 Last Admin: 03/06/19 08:33 Dose: 10 mg Documented by: Enoxaparin Sodium (Lovenox) 30 mg SQ QAM [facility] Stop: 04/03/19 08:59 Last Admin: 03/06/19 08:36 Dose: 30 mg Documented by: Glucagon (Glucagen) 1 mg SQ UD PRN; Protocol PRN Reason: Hypoglycemia Protocol Stop: 04/02/19 01:31 Glucose (Glucose 40%) 15 - 30 gm PO UD PRN; Protocol PRN Reason: Hypoglycemia Protocol Stop: 04/02/19 01:31 Glucose (Dex4 Glucose) 4 - 8 tabs PO UD PRN; Protocol PRN Reason: Hypoglycemia Protocol Stop: 04/02/19 01:31 Lorazepam (Ativan) 1 mg in 2 mls @ 0.5 mls/min IV Q10M PRN PRN Reason: seizures Stop: 04/02/19 01:31 Piperacillin Sod/Tazobactam (Sod 3.375 gm/ Dextrose) 115 mls @ 28.75 mls/hr IV Q8H ANABELA; Protocol Stop: 03/16/19 19:59 Insulin Aspart (Novolog Flexpen) 0 units SC ACHS [facility] Stop: 04/04/19 11:29 Last Admin: 03/06/19 12:05 Dose: Not Given Documented by: Insulin Glargine (Lantus Solostar Pen) 5 units SQ HS [facility] Stop: 04/04/19 20:59 Last Admin: 03/05/19 21:58 Dose: 5 units Documented by: Levetiracetam (Keppra) 1,000 mg PO BID [facility] Stop: 04/02/19 08:59 Last Admin: 03/06/19 08:35 Dose: 1,000 mg Documented by: Levothyroxine Sodium (Synthroid) 50 mcg PO DAILYBB [facility] Stop: 04/02/19 06:29 Last Admin: 03/06/19 06:19 Dose: 50 mcg Documented by: Lisinopril (Zestril) 5 mg PO QAM [facility] Stop: 04/05/19 09:44 Last Admin: 03/06/19 11:22 Dose: 5 mg Documented by: Miscellaneous (Carbohydrates For Hypoglycemia) 15 - 30 gm PO UD PRN PRN Reason: Hypoglycemia Treatment Stop: 04/02/19 01:31 Last Admin: 03/03/19 17:33 Dose: 30 gm Documented by: Miscellaneous Information (Consult) 1 ea N/A UD PRN PRN Reason: Consult Stop: 04/03/19 00:25 Nitroglycerin (Nitrostat) 0.4 mg SL UD PRN PRN Reason: Chest Pain Stop: 04/02/19 01:31 Oxycodone HCl (Roxicodone Immediate Rel) 5 mg PO Q4H PRN PRN Reason: Pain Stop: 03/17/19 01:31
[2019-03-06] MEDS: INSULIN GLARGINE SOLOSTAR 100 UNITS/ML 3 ML PEN SQ SCH (20:58)
[2019-03-06] MEDS ORDERED: AMLODIPINE BESYLATE 5 MG TAB PO ONE (21:00)
[2019-03-06] MEDS: PIPERACILLIN/TAZOBACTAM 3.375 GM in DEXTROSE 5% 100 ML IV SCH (21:46)
[2019-03-07] MEDS: PIPERACILLIN/TAZOBACTAM 3.375 GM in DEXTROSE 5% 100 ML IV SCH ×2 (05:21→11:52)
[2019-03-07] MEDS: LEVOTHYROXINE SODIUM 50 MCG TABLET PO SCH (05:23)
[2019-03-07 06:57] LABS: Basophils # (auto) 0.01 K/uL (0-0.2); Basophils % (auto) 0.1 %; Eosinophils # (auto) 0.05 K/uL (0-0.5); Eosinophils % (auto) 0.5 %; Hematocrit (blood only) 36.7 % (42-52); Hemoglobin 12.6 g/dL (14.0-18.0); Immature Granulocytes # (auto) 0.03 K/uL (0.00-0.02); Immature Granulocytes % (auto) 0.3 %; Lymphocytes # (auto) 1.45 K/uL (1.2-3.4); Lymphocytes % (auto) 15.1 %; Mean Corpuscular Hgb Conc 34.3 g/dL (32-36); Mean Corpuscular Volume 99.7 fL (80-100); Mean Platelet Volume 11.4 fL (7.4-10.4); Monocytes # (auto) 0.73 K/uL (0.11-0.59); Monocytes % (auto) 7.6 %; Neutrophils # (auto) 7.36 K/uL (1.4-6.5); Neutrophils % (auto) 76.4 %; Nucleated RBC # (auto) 0.02 K/uL (0-0); Nucleated RBC % (auto) 0.2 %; Platelet Count 312 K/uL (130-400); RDW Coefficient of Variation 13.1 % (11.5-14.5); RDW Standard Deviation 47.6 fL (36.4-46.3); Red Blood Count 3.68 M/uL (4.7-6.1); White Blood Count 9.63 K/uL (4.8-10.8)
[2019-03-07] MEDS: DIVALPROEX DELAY RELEASE 500 MG TAB PO SCH (07:25)
[2019-03-07] MEDS: LISINOPRIL 5 MG TAB PO SCH (07:25)
[2019-03-07] MEDS: ENOXAPARIN INJ 30 MG/0.3 ML SYR SQ SCH (07:25)
[2019-03-07] MEDS: ASPIRIN 81 MG ECTAB PO SCH (07:26)
[2019-03-07] MEDS: DONEPEZIL HCL 10 MG TAB PO SCH (07:26)
[2019-03-07 07:28] LABS: BUN Creatinine Ratio 19.4 (10-20); Calcium 9.3 mg/dl (8.5-10.1); Creatinine Clr Calc Pharmacy 53.8 ml/min; Est GFR (African American) 84.8; Est GFR (Non-African American) 73.2; Potassium 4.6 mmol/L (3.5-5.1)
[2019-03-07] MEDS: INSULIN ASPART 100 UNITS/ML 3 ML PEN SC SCH ×2 (07:51→12:29)
[2019-03-07] MEDS ORDERED: PHARMACY GLYCEMIC MGMT CONSULT PRN (08:55)
[2019-03-07] MEDS ORDERED: AMLODIPINE BESYLATE 5 MG TAB PO SCH (09:00)
[2019-03-07] MEDS: levETIRAcetam 500 MG TAB PO SCH (09:20)
--- NOTE | 2019-03-07 13:53 | Pharmacy Report ---
Glycemic Control Consultation - Date of Service March 07, 2019 - Scope Scope: Glycemic Pharmacist consulted by Dr Patel on 03/07/19 for glycemic control and to write orders per [facility] inpatient glycemic control protocol - Objective Weight: 60.9 kg Accuchecks BSG (last 24hrs): 03/06/19 03/06/19 03/07/19 16:42 20:33 05:59 Glucose 192 H POC Glucose 162 H 155 H 03/07/19 03/07/19 07:42 12:26 Glucose POC Glucose 174 H 195 H Laboratory Data (last 24hrs): 03/07/19 05:59 Potassium 4.6 Carbon Dioxide 24 Anion Gap 7.0 Creatinine 0.99 Est Cr Clr Drug Dosing 53.8 HbA1c: Hemoglobin A1c 8.6 % (4.5-5.6) H 03/02/19 21:44 - Recent Pertinent Medications Outpatient Anti-diabetic Regimen: * NPH 4u BIDM, regular SSI * A1c = 8.6 % 03/02/19 - Assessment & Plan Assessment & Plan: ASSESSMENT: * Mr. Chung is a 78yo M p/w altered mentation, thought to be 2/2 to hypoglycemia. 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 PMHx consistent w/ schizoaffective dx, sz disorder, HTN, dementia, MR, among others. * Hypoglycemia likely due to NPH and poor PO intake. Will use lantus in favor of NPH. PLAN FOR INPATIENT GLYCEMIC CONTROL: * Basal insulin * Lantus 8 units HS * Bolus insulin * NovoLog per scale ACHS or Q6hrs while NPO * Goal Range: Low 120 mg/dL - High 160 mg/dL * Correction Factor: 40 mg/dL/unit * Nutritional / Prandial insulin per carb ratio of 1 unit per 13 grams CHO consumed D/C recommendations: * I spoke with the [facility] this morning. They could likely afford to use once daily lantus over BID NPH: recommend Lantus 8u HS to start with further titrations per outpt provider. * Continue Regular SSI * Please note that the plan above was derived based on current level of insulin resistance and hospital stress. These recommendations are appropriate for inpatient admission only. Plan of care upon discharge will need to be reassessed to avoid potential outpatient hypo/hyperglycemia. Thank you.
--- NOTE | 2019-03-07 16:34 | Discharge Summary ---
Date of Service March 07, 2019 Admission HPI Per Admitting Provider This is a 78 year old incarcerated M who has a significant PMH of Schizoaffective bipolar type, IDDM2, Mild MR, Seizure disorder, HTN, Incontinence, Dementia, Tremors who presents to [facility] ED after being found on floor at [facility]. History difficult to obtain from patient given difficulty understanding due to lack of dentition. Per pt he fell and was on the ground. Denies seizure, loss of bowel or bladder, hitting head. Per C.O. blood sugar when found was in 50s and upon arrival as low as 30s. Officer states there was question if he was having seizure like activity due to his shaking. They state he shakes all the time, freq falls, difficulty walking and moving about. Pt denies dx of parkinson disease. He states he takes his medications regularly. He denies any f/c/s, dizziness, lightheaded, chest pain, sob, n/v/d, change in bowel or urinary habit. Appetite has been good. Admission Exam Per Admitting Provider Gen: WD/WN, -[place], male, sitting up in bed eating dinner, difficult to understand secondary to mild MR/absent dentition, +tremor, pleasant, Head: Normocephalic, Atraumatic Eyes: Sclera normal, no conjunctival injection, PERRLA, EOMI ENT: Gross hearing intact, normal pharynx, mucous membranes moist Neck: supple, no adenopathy, No JVD, no bruit, Resp: Clear to auscultation b/l, no wheeze, rales, rhonchi. 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 Extremities: No edema bilaterally Skin: warm, moist, no rash, negative turgor, cap refill < 2sec Neuro: Alert and oriented x 3, speech normal, good mood/affect, cran nerve 2-12 intact grossly : deferred Principal Diagnosis ENCEPHALOPATHY SECONDARY TO HYPOGLYCEMIA Discharge Exam General- oriented x1, not in distress, speaks in sentences with no effort or accessory muscle use mental status back to baseline as per Circulation Clerk Staff Eyes- anicteric Neck- no JVD Lungs- clear breath sounds bilaterally, no rales/wheezes Heart- normal rate, regular rhythm; no murmurs Abdomen- normal bowel sounds, nondistended, soft, nontender Extremities- no pretibial edema, no calf tenderness Neuro- alert, oriented x 1; no other gross focal neurologic deficits Skin- warm & dry Discharge Data Allergies Allergy/AdvReac Type Severity Reaction Status Date / Time No Known Allergies Allergy Unverified 03/02/19 17:58 Consultations 03/02/19 19:46 ED Decision to Admit Stat Ordered Studies 03/02/19 17:44 CT head/brain wo con Stat FINDINGS: Human Resources File Clerk topogram: Unremarkable. Proportional ventricular and sulcal prominence, likely age-related parenchymal volume loss. No hemorrhage. Brain parenchyma normal in appearance with preserved peters-white differentiation. No acute territorial infarct. No mass effect or midline shift. No extra-axial fluid collection. Paranasal sinuses and mastoid air cells clear. Calvarium intact. Subgaleal thickening in the left occipital region as on prior. IMPRESSION: 1. No acute intracranial abnormality. Hospital Course (1) Altered mental status: per Dr. Hutson's notes: Presented with change in mental status Doubt any seizure activity-anticonvulsant levels so far remains within normal range Complicated by schizoaffective disorder-bipolar type likely from Hypoglycemia Remained stable since admission He seems to be at his baseline History of UTI Urinalysis history of infection Urine culture has not been sent given intravenous Zosyn x 4 days Clinically no signs of infection monitor consider repeat UA in 3-5 days (2) Hypoglycemia: Symptoms likely secondary to hypoglycemia given Insulin Lantus and Insulin Sliding Scale BSGs improved Pharmacy consulted recommend: Insulin Lantus 8 units HS monitor BSGs AC and HS, adjust Insulin accordingly Depakote level WNL, Keppra level pending Symptoms likely secondary to hypoglycemia although sepsis not entirely ruled out. Blood cultures pending and urine cultures to be obtained. In addition to the dextrose in ED patient also received a dose of Depakote and Keppra along with IV Zosyn and 1 L of IVF. Please refer to Dr. Almanza addendum for further details regarding assessment and plan (3) Diabetes: Hb A1C-8.6 management of Insulin as noted above (4) Seizure: Continue Depakote and Keppra No more seizures in the hospital (5) Schizophrenia: Continue Depakote, mood stable (6) Dementia: Continue Aricept (7) Hypothyroidism: Continue levothyroxine (8) HTN (hypertension): add Amlodipine 5mg po daily for better BP contrl Continue Losartan monitor BP BID and adjust medications accordingly (9) Hyperkalemia: Potassium noted to be high at 5.8 With normal kidney function Insulin plus dextrose were given IV Recheck at around 4 PM-potassium came down to 5.2 Potassium level improved to 4.6 Total Time Total Time Spent Total Time Spent (In Minutes): 40 minutes Discharge Plan Discharge Items [facility] Disposition[facility] Reason For Visit: ENCEPHALOPATHY Discharge Diagnosis: ENCEPHALOPATHY SECONDARY TO HYPOGLYCEMIA Discharge Goals: Diagnostic testing Activity: As commented below Activity Comment: RESUME ACTIVITY GRADUALLY TOLERATED Non-emergency contact: Primary Care Provider Call non-emergency contact if: you have any medication questions, your symptoms worsen and you have a fever Follow-up/Referrals: Kisha ORTIZ [Primary Care Provider] - Diet: Carb Consistent or DM2 and Heart Healthy Addtl Provider Instructions: MONITOR BLOOD GLUCOSE LEVEL WITH MEALS AND AT BEDTIME. MONITOR BLOOD PRESSURE TWICE A DAY. PLEASE REFER TO HOSPITAL DISCHARGE SUMMARY FOR FURTHER DETAILS. Prescriptions: New amlodipine [Norvasc] 5 mg Tablet 5 mg PO QAM 30 Days Qty: 30 RF: 1 Lantus Solostar U-100 Insulin 100 unit/mL (3 mL) Insulin Pen 8 unit subcut HS 30 Days Qty: 2.4 RF: 1 Continued levothyroxine 50 mcg Tablet 50 mcg PO QAM RF: 0 aspirin 81 mg Tablet,Chewable 81 mg PO QAM RF: 0 divalproex 500 mg Tablet,Delayed Release (Dr/Ec) 1,000 mg PO BID RF: 0 donepezil 10 mg Tablet 10 mg PO QAM RF: 0 levetiracetam 1,000 mg Tablet 1,000 mg PO BID RF: 0 losartan 50 mg Tablet 50 mg PO QAM RF: 0 Discontinued diphenhydramine HCl [Benadryl] 25 mg Capsule 50 mg PO HS RF: 0 Humulin N NPH U-100 Insulin 100 unit/mL Suspension 4 units subcut QAM RF: 0 Humulin N NPH U-100 Insulin 100 unit/mL Suspension 4 units subcut QPM RF: 0 Humulin R Regular U-100 Insuln 100 unit/mL Solution 1 sliding scale dose SUBCUT UD RF: 0 Stand-Alone Forms: [facility] Discharge Orders: Discharge Order (Routine); Ordered 03/07/19 Ordered By: Osman Patel Admission Data Admit Date/Time: 03/02/19 23:30 Attending Provider: Osman Patel Admit Provider: Harjit Beatty Primary Care Provider: Kisha ORTIZ Other Providers: Harjit Beatty ; Cristina Hutson Service: Medical
[2019-03-07] MEDS ORDERED: INSULIN GLARGINE SOLOSTAR 100 UNITS/ML 3 ML PEN SQ SCH (21:00)
== END 2019-03-07 18:43 | DRG 638 ==
LOC: ED 17:00 → SUATTDRO 23:30 → 2W 23:30 → 4W 03-06 19:48

== ENCOUNTER 2020-08-19 09:59 | Inpatient (IN) ==
[2020-08-19] MEDS ORDERED: SODIUM CHLORIDE 0.9% 1000ML 1,000 ML IV ONE (10:15)
[2020-08-19] MEDS ORDERED: ALBUT/IPRATROP 3MG/0.5MG NEB 3 ML VIAL NEB STA (10:19)
[2020-08-19] MEDS ORDERED: DEXAMETHASONE SOD INJ 10 MG/ML VIAL IV ONE (10:20)
[2020-08-19] MEDS ORDERED: guaiFENesin 600 MG TABCR PO STA (10:20)
[2020-08-19 11:03] LABS: Hematocrit (blood only) 38.6 % (42-52); Hemoglobin 12.4 g/dL (14.0-18.0); Immature Granulocytes # (auto) 0.01 K/uL (0.00-0.02); Immature Granulocytes % (auto) 0.1 %; Lymphocytes # (auto) 1.19 K/uL (1.2-3.4); Lymphocytes % (auto) 16.9 %; Mean Corpuscular Hemoglobin 34.3 pg (25-34); Mean Corpuscular Hgb Conc 32.1 g/dL (32-36); Mean Corpuscular Volume 106.6 fL (80-100); Monocytes # (auto) 1.05 K/uL (0.11-0.59); Monocytes % (auto) 14.9 %; Neutrophils # (auto) 4.81 K/uL (1.4-6.5); Neutrophils % (auto) 68.1 %; Nucleated RBC # (auto) 0.03 K/uL (0-0); Nucleated RBC % (auto) 0.4 %; Platelet Count 188 K/uL (130-400); RDW Coefficient of Variation 13.7 % (11.5-14.5); RDW Standard Deviation 53.7 fL (36.4-46.3); Red Blood Count 3.62 M/uL (4.7-6.1); White Blood Count 7.06 K/uL (4.8-10.8)
[2020-08-19 11:12] LABS: INR 1.1 (0.9-1.1); Partial Thromboplastin Time 28.5 Seconds (21.0-31.0); Prothrombin Time 11.1 Seconds (9.0-12.0)
--- NOTE | 2020-08-19 11:16 | Emergency Department Note ---
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 POC Glucose (70-99) mg/dl Lactate 1.8 (0.4-2.0) mmol/L Calcium (8.5-10.1) mg/dl Phosphorus (2.5-4.9) mg/dl Magnesium (1.8-2.4) mg/dl Ferritin (8-388) ng/ml Total Bilirubin (0.2-1) mg/dl Direct Bilirubin (0-0.2) mg/dl AST (15-37) U/L ALT (12-78) U/L Alkaline Phosphatase (45-117) U/L Troponin I (0-0.045) ng/ml C-Reactive Protein (0-0.29) mg/dl NT-Pro-B Natriuret Pep (0-1800) pg/ml Total Protein (6.4-8.2) gm/dl Albumin (3.4-5.0) gm/dl Globulin (2.5-4.0) gm/dl Albumin/Globulin Ratio (0.9-2) Procalcitonin (0-0.5) ng/ml COVID-19 Eval Order Influ A Molecular Assay (Negative) Influ B Molecular Assay (Negative) SARS-CoV-2, RNA, NAAT (NEGATIVE) Administered Medications Discontinued Medications Albuterol (Albut/Ipratrop 3mg/0.5mg Neb 3 Ml Vial) 3 ml NEB NOW STA Stop: 08/19/20 10:20 Last Admin: 08/19/20 10:35 Dose: 3 ml Documented by: [id number] Dexamethasone (Dexamethasone Sod Inj 10 Mg/Ml Vial) 6 mg IV NOW ONE Stop: 08/19/20 10:21 Last Admin: 08/19/20 10:41 Dose: 6 mg Documented by: [id number] Guaifenesin (Guaifenesin 600 Mg Tabcr) 600 mg PO NOW STA Stop: 08/19/20 10:21 Last Admin: 08/19/20 10:41 Dose: 600 mg Documented by: [id number] Sodium Chloride (Nss 1000ml) 1,000 mls @ 999 mls/hr IV .Q1H1M ONE Stop: 08/19/20 11:15 Last Infusion: 08/19/20 11:49 Dose: 0 mls/hr Documented by: [id number] Admin: 08/19/20 10:41 Dose: 999 mls/hr Documented by: [id number] Remdesivir 200 mg/ Sodium (Chloride) 250 mls @ 125 mls/hr IV ONE STA; Protocol Stop: 08/19/20 16:19 Last Admin: 08/19/20 15:59 Dose: 125 mls/hr Documented by: [id number] Ioversol (Optiray 320 125ml) 118 ml IV ONCE ONE Stop: 08/19/20 14:35 Last Admin: 08/19/20 14:34 Dose: 118 ml Documented by: [id number] Discharge Plan Visit Data Chief Complaint: Illness ED Provider: Denny Rdz Discharge Problem: Acute respiratory failure with hypoxia, Dementia, Pneumonia due to COVID-19 virus, Dehydration Forms Stand Alone Forms: [facility] Prescriptions Prescriptions: No Action levothyroxine 50 mcg Tablet 50 mcg PO QAM RF: 0 diphenhydramine HCl 50 mg Capsule 50 mg PO HS RF: 0 ciprofloxacin HCl 250 mg Tablet 250 mg PO BID RF: 0 phenazopyridine 100 mg Tablet 100 mg PO TID RF: 0 Novolin R Flexpen 100 unit/mL (3 mL) Insulin Pen 0 unit SUBCUT .SLIDING SCALE RF: 0 Lantus Solostar U-100 Insulin 100 unit/mL (3 mL) Insulin Pen 5 unit SUBCUT HS RF: 0 aspirin 81 mg Tablet,Chewable 81 mg PO QAM RF: 0 divalproex 500 mg Tablet,Delayed Release (Dr/Ec) 1,000 mg PO BID RF: 0 donepezil 10 mg Tablet 10 mg PO QAM RF: 0 levetiracetam 1,000 mg Tablet 1,000 mg PO BID RF: 0 losartan 50 mg Tablet 50 mg PO QAM RF: 0 Discharge Problem: Dementia Qualifiers: Dementia type: unspecified type Dementia behavioral disturbance: without behavioral disturbance Qualified Code(s): F03.90 - Unspecified dementia without behavioral disturbance
--- NOTE | 2020-08-19 11:18 | XRay Report ---
XR chest 1V portable CLINICAL HISTORY: SEPSIS COMPARISON STUDY: 03/03/2019 FINDINGS: The cardiac and mediastinal contours remain stable. There is borderline elevation right hem idiaphragm. There are basilar opacities likely atelectatic although an infectious/inflammatory proces ses could appear similar. There is no failure. There are no large pleural effusions[ IMPRESSION: Basilar opacities, atelectatic versus infectious/inflammatory. ACT 112: Negative or not required by law. Electronically signed by: Ryan Moreira M.D. 08/19/2020 11:16 AM
[2020-08-19 11:21] LABS: Alanine Aminotransferase 20 U/L (12-78); Albumin Level 2.7 gm/dl (3.4-5.0); Aspartate Aminotransferase 42 U/L (15-37); BUN Creatinine Ratio 24.4 (10-20); Bilirubin Direct 0.1 mg/dl (0-0.2); Blood Urea Nitrogen 34 mg/dl (7-18); Calcium 8.4 mg/dl (8.5-10.1); Carbon Dioxide 30 mmol/L (21-32); Chloride 108 mmol/L (98-107); Est GFR (Non-African American) 47.5; Glucose 113 mg/dl (70-99); Magnesium 2.5 mg/dl (1.8-2.4); Potassium 4.8 mmol/L (3.5-5.1); Sodium 143 mmol/L (136-145)
[2020-08-19 11:26] LABS: Albumin Globulin Ratio 0.5 (0.9-2); Alkaline Phosphatase 83 U/L (45-117); Bilirubin,Total 0.4 mg/dl (0.2-1); Globulin 5.5 gm/dl (2.5-4.0); NT Pro B Type Natriuretic Pept 449 pg/ml (0-1800); Phosphorus 3.4 mg/dl (2.5-4.9); Total Protein 8.2 gm/dl (6.4-8.2); Troponin I < 0.015 ng/ml (0-0.045)
[2020-08-19 12:56] LABS: D Dimer 960 ug/L FEU (0-500)
--- NOTE | 2020-08-19 13:07 | Electrocardiogram Report ---
Test Reason : Blood Pressure : / mmHG Vent. Rate : 094 BPM Atrial Rate : 094 BPM P-R Int : 122 ms QRS Dur : 076 ms QT Int : 378 ms P-R-T Axes : 050 -29 144 degrees QTc Int : 472 ms Normal sinus rhythm T wave abnormality, consider anterolateral ischemia Prolonged QT Abnormal ECG When compared with ECG of 03-MAR-2019 06:16, Nonspecific T wave abnormality now evident in Inferior leads T wave inversion now evident in Anterolateral leads Confirmed by Simón Sims ([id number]) on 08/19/2020 1:07:24 PM Referred By: [facility] Confirmed By:Simón Sims
[2020-08-19 13:27] LABS: C Reactive Protein 15.1 mg/dl (0-0.29); Ferritin 450.7 ng/ml (8-388)
[2020-08-19] MEDS ORDERED: amLODIPine BESYLATE 5 MG TAB PO ONE (14:12)
[2020-08-19] MEDS ORDERED: cloNIDine HCL 0.1 MG TAB PO PRN (14:13)
[2020-08-19 14:14] LABS: Influenza A virus by PCR Negative (Negative); Influenza B virus by PCR Negative (Negative)
[2020-08-19] MEDS ORDERED: REMDESIVIR 200 MG in SODIUM CHLORIDE 0.9% 210 ML IV STA (14:20)
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
[2020-08-19] MEDS ORDERED: OPTIRAY 320 125ml IV ONE (14:34)
--- NOTE | 2020-08-19 14:42 | CT Scan Report ---
CT ANGIOGRAM OF THE CHEST CLINICAL HISTORY: Hypoxia. Covid positive patient. Possible pulmonary embolism. COMPARISON STUDY: Chest x-ray dated 08/19/2020 TECHNIQUE: Following the IV administration of 118 mL of Optiray-320, CT angiogram of the thorax was p erformed from the thoracic inlet to the lung bases utilizing the pulmonary embolus protocol. Images a re reviewed in the axial, sagittal, and coronal planes. IV contrast was administered without complica tion. MIP imaging was performed. A dose lowering technique was utilized adhering to the principles o f ALARA. CT DOSE: 429.80 mGycm FINDINGS: There is elevation the right hemidiaphragm. Mediastinal and hilar lymph nodes are the upper limits of normal in size. There was no evidence of thoracic aortic dilatation. There were no pulmonary artery filling defects to indicate acute pulmonary embolism. No pleural effusions are visualized. There are bibasilar dependent airspace opacities likely atelectatic. There is pulmonary emphysema. Th ere is bilateral lower lobe bronchial wall thickening and mucous plugging. There is a metallic projectile fragment within the right lower lobe. IMPRESSION: 1. No evidence of acute pulmonary embolism 2. Bilateral lower lobe bronchial wall thickening and mucous plugging with basilar atelectasis. 3. Metallic projectile fragment within the right lower lobe 4. Elevation of the right hemidiaphragm ACT 112: Negative or not required by law. Electronically signed by: Ryan Moreira M.D. 08/19/2020 2:41 PM
[2020-08-19] MEDS ORDERED: ALBUT/IPRATROP 3MG/0.5MG NEB 3 ML VIAL NEB PRN (16:31)
[2020-08-19] MEDS: ALBUT/IPRATROP 3MG/0.5MG NEB 3 ML VIAL NEB SCH (18:10)
[2020-08-19] MEDS ORDERED: GLUCOSE 40% GEL 15 GM TUBE PO PRN (20:15)
[2020-08-19] MEDS ORDERED: DEXTROSE 50% 50 ML SYRINGE IV PRN (20:15)
[2020-08-19] MEDS ORDERED: CARBOHYDRATES FOR HYPOGLYCEMIA PO PRN (20:15)
[2020-08-19] MEDS ORDERED: GLUCOSE 10 TABS/TUBE PO PRN (20:15)
[2020-08-19] MEDS ORDERED: GLUCAGON FOR INJ 1 MG VIAL IM PRN (20:15)
[2020-08-19] MEDS: INSULIN ASPART 100 UNITS/ML 3 ML PEN SC SCH (21:00)
[2020-08-19] MEDS ORDERED: NON-FORMULARY MEDICATION (Insulin Regular Human [Novolin R Flexpen] 100 unit/mL (3 mL) Ins SQ SCH (23:52)
[2020-08-19] MEDS ORDERED: INSULIN GLARGINE SOLOSTAR 100 UNITS/ML 3 ML PEN SQ SCH (23:52)
[2020-08-20] MEDS ORDERED: GLUCOSE 10 TABS/TUBE PO PRN (00:15)
[2020-08-20] MEDS ORDERED: INSULIN ASPART 100 UNITS/ML 3 ML PEN SC SCH (00:15)
[2020-08-20] MEDS ORDERED: DEXTROSE 50% 50 ML SYRINGE IV PRN (00:15)
[2020-08-20] MEDS ORDERED: GLUCOSE 40% GEL 15 GM TUBE PO PRN (00:15)
[2020-08-20] MEDS ORDERED: GLUCAGON FOR INJ 1 MG VIAL SQ PRN (00:15)
[2020-08-20] MEDS ORDERED: CARBOHYDRATES FOR HYPOGLYCEMIA PO PRN (00:15)
[2020-08-20] MEDS: ALBUT/IPRATROP 3MG/0.5MG NEB 3 ML VIAL NEB SCH ×4 (00:18→19:38)
[2020-08-20] MEDS: DIVALPROEX DELAY RELEASE 500 MG TAB PO SCH ×3 (01:13→21:53)
[2020-08-20] MEDS: levETIRAcetam 500 MG TAB PO SCH ×3 (01:14→21:54)
[2020-08-20] MEDS: diphenhydrAMINE Capsule 25 MG CAP PO SCH ×2 (01:14→21:54)
[2020-08-20] MEDS: PHENAZOPYRIDINE HCL 100 MG TAB PO SCH ×4 (01:14→21:53)
[2020-08-20] MEDS: INSULIN ASPART 100 UNITS/ML 3 ML PEN SC SCH ×5 (02:15→23:47)
[2020-08-20] MEDS: LEVOTHYROXINE SODIUM 50 MCG TABLET PO SCH (06:15)
[2020-08-20] MEDS ORDERED: DEXAMETHASONE SOD INJ 4 MG/ML VIAL IV SCH (09:00)
[2020-08-20] MEDS: dexAMETHasone 6 MG in SYRINGE 0 ML IV SCH (10:11)
[2020-08-20] MEDS: DONEPEZIL HCL 10 MG TAB PO SCH (10:11)
[2020-08-20] MEDS: ASPIRIN 81 MG ECTAB PO SCH (10:12)
[2020-08-20] MEDS: amLODIPine BESYLATE 5 MG TAB PO SCH (10:13)
[2020-08-20] MEDS: ENOXAPARIN INJ 30 MG/0.3 ML SYR SQ SCH ×2 (10:32→21:53)
[2020-08-20] MEDS: REMDESIVIR 100 MG in SODIUM CHLORIDE 0.9% 230 ML IV SCH (12:45)
[2020-08-20] MEDS: SODIUM CHLORIDE 0.9% 10ML FLUSH IV SCH (14:10)
--- NOTE | 2020-08-20 21:13 | Hospitalist Progress Note ---
Date of Service August 20, 2020 Assessment & Plan (1) Pneumonia due to COVID-19 virus: Cough for 4-5 days prior to admission. Exposed to COVID at correction. SARS-CoV-2 PCR positive in ED. Chest x-ray showed bibasilar densities. O2 sats as low as 80%. Lymphocytes 1190 > 1110. CRP 15.1. Procalcitonin 0.14. Receiving IV dexamethasone and remdesivir- today is day # 2. LFT's essentially normal. [place] that convalescent plasma unlikely to be beneficial given duration of illness. (2) Acute respiratory failure with hypoxia: O2 sats as low as 80%. CTA negative for PE. Hypoxia probably secondary to COVID pneumonia. Continue supplemental O2 and wean as tolerated. (3) HTN (hypertension): Hemodynamically stable. Continue amlodipine. (4) Diabetes: Blood sugars elevated due to acute illness + steroids. Lantus / NovoLog per protocol. (5) Seizure disorder: Continue levetiracetam and divalproex sodium. (6) Dementia: Monitor for delirium. (7) DVT prophylaxis: SQ enoxaparin. (8) Discharge planning issues: Anticipated return to [facility] when medically stable. Admission and Anticipated Discharge Date Admission Date: August 19, 2020 Subjective Recheck for COVID-19 pneumonia and other problems. Patient seen in their room around 1520. No fever. Persistent cough. Denies CP or SOB. Denies nausea, vomiting, diarrhea. Review of Systems: Constitutional- no fever. Cardiac- no chest pain. Pulmonary- as noted above. GI- as noted above. - no urinary symptoms. Otherwise, as noted above. Physical Exam Constitutional: no acute distress Eyes: + anicteric sclerae Respiratory: no respiratory distress Auscultation: + rales Cardiovascular: Rate/Rhythm: regular rate and regular rhythm Vessels: no JVD Extremities: no calf tenderness and no edema Gastrointestinal (Abdomen): normal bowel sounds, soft, nontender, no hepatosplenomegaly Musculoskeletal: Extremities: no cyanosis Skin: no rashes, warm and dry Psychiatric: Orientation: alert Results & Data Results & Data ([facility]) Vital Signs (Past 12 Hours) Vital Signs Temp Pulse Pulse Resp BP Pulse Ox Pulse Ox 08/20/20 19:38 58 L 20 08/20/20 17:14 68 18 160/70 H 90 08/20/20 13:09 58 L 18 98 08/20/20 12:31 36.5 C 66 25 H 171/77 H 100 95 (1) Dementia Dementia behavioral disturbance: without behavioral disturbance Dementia type: unspecified type Qualified Code(s): F03.90 - Unspecified dementia without behavioral disturbance
[2020-08-20 21:56] LABS: Hematocrit (blood only) 36.2 % (42-52); Hemoglobin 11.6 g/dL (14.0-18.0); Immature Granulocytes # (auto) 0.02 K/uL (0.00-0.02); Immature Granulocytes % (auto) 0.2 %; Lymphocytes # (auto) 1.11 K/uL (1.2-3.4); Lymphocytes % (auto) 10.7 %; Mean Corpuscular Hemoglobin 34.2 pg (25-34); Mean Corpuscular Volume 106.8 fL (80-100); Mean Platelet Volume 12.7 fL (7.4-10.4); Monocytes # (auto) 0.36 K/uL (0.11-0.59); Monocytes % (auto) 3.5 %; Neutrophils % (auto) 85.6 %; Nucleated RBC # (auto) 0.09 K/uL (0-0); Nucleated RBC % (auto) 0.9 %; Platelet Count 169 K/uL (130-400); RDW Coefficient of Variation 13.4 % (11.5-14.5); RDW Standard Deviation 52.5 fL (36.4-46.3); Red Blood Count 3.39 M/uL (4.7-6.1); White Blood Count 10.39 K/uL (4.8-10.8)
[2020-08-20 22:21] LABS: Albumin Globulin Ratio 0.5 (0.9-2); Albumin Level 2.4 gm/dl (3.4-5.0); Bilirubin Direct 0.1 mg/dl (0-0.2); Bilirubin,Total 0.2 mg/dl (0.2-1); Calcium 7.8 mg/dl (8.5-10.1); Est GFR (African American) 66.9; Est GFR (Non-African American) 57.8; Potassium 4.3 mmol/L (3.5-5.1); Total Protein 7.4 gm/dl (6.4-8.2)
[2020-08-21] MEDS: INSULIN GLARGINE SOLOSTAR 100 UNITS/ML 3 ML PEN SC SCH ×3 (00:12→21:18)
[2020-08-21] MEDS: ALBUT/IPRATROP 3MG/0.5MG NEB 3 ML VIAL NEB SCH ×4 (00:35→19:42)
[2020-08-21] MEDS: LEVOTHYROXINE SODIUM 50 MCG TABLET PO SCH (06:04)
[2020-08-21] MEDS ORDERED: hydrALAZINE 10 MG TAB PO PRN (08:17)
[2020-08-21 08:56] LABS: Basophils # (auto) 0.01 K/uL (0-0.2); Basophils % (auto) 0.1 %; Hematocrit (blood only) 36.5 % (42-52); Hemoglobin 11.9 g/dL (14.0-18.0); Immature Granulocytes # (auto) 0.01 K/uL (0.00-0.02); Immature Granulocytes % (auto) 0.1 %; Lymphocytes # (auto) 1.19 K/uL (1.2-3.4); Lymphocytes % (auto) 11.8 %; Mean Corpuscular Hemoglobin 33.6 pg (25-34); Mean Corpuscular Hgb Conc 32.6 g/dL (32-36); Mean Corpuscular Volume 103.1 fL (80-100); Mean Platelet Volume 13.6 fL (7.4-10.4); Monocytes # (auto) 0.61 K/uL (0.11-0.59); Monocytes % (auto) 6.1 %; Neutrophils # (auto) 8.23 K/uL (1.4-6.5); Neutrophils % (auto) 81.9 %; Nucleated RBC # (auto) 0.12 K/uL (0-0); Nucleated RBC % (auto) 1.2 %; Platelet Count 161 K/uL (130-400); RDW Coefficient of Variation 13.1 % (11.5-14.5); RDW Standard Deviation 50.2 fL (36.4-46.3); Red Blood Count 3.54 M/uL (4.7-6.1); White Blood Count 10.05 K/uL (4.8-10.8)
[2020-08-21] MEDS: ENOXAPARIN INJ 30 MG/0.3 ML SYR SQ SCH ×2 (09:14→21:04)
[2020-08-21] MEDS: amLODIPine BESYLATE 5 MG TAB PO SCH (09:17)
[2020-08-21] MEDS: dexAMETHasone 6 MG in SYRINGE 0 ML IV SCH (09:17)
[2020-08-21] MEDS: levETIRAcetam 500 MG TAB PO SCH ×2 (09:17→21:04)
[2020-08-21] MEDS: DIVALPROEX DELAY RELEASE 500 MG TAB PO SCH ×2 (09:17→21:04)
[2020-08-21] MEDS: DONEPEZIL HCL 10 MG TAB PO SCH (09:17)
[2020-08-21] MEDS: ASPIRIN 81 MG ECTAB PO SCH (09:17)
[2020-08-21] MEDS: INSULIN ASPART 100 UNITS/ML 3 ML PEN SC SCH ×4 (09:18→21:18)
[2020-08-21 09:49] LABS: Albumin Globulin Ratio 0.5 (0.9-2); Albumin Level 2.6 gm/dl (3.4-5.0); BUN Creatinine Ratio 46.8 (10-20); Bilirubin,Total 0.4 mg/dl (0.2-1); C Reactive Protein 8.62 mg/dl (0-0.29); Calcium 8.3 mg/dl (8.5-10.1); Creatinine Clr Calc Pharmacy 41.2 ml/min; Est GFR (African American) 78.8; Globulin 5.4 gm/dl (2.5-4.0); Potassium 5.5 mmol/L (3.5-5.1)
[2020-08-21 09:50] LABS: Bilirubin Direct 0.2 mg/dl (0-0.2)
[2020-08-21 10:41] LABS: Estimated Average Glucose 235 mg/dl; Hemoglobin A1C 9.8 % (4.5-5.6)
[2020-08-21] MEDS: REMDESIVIR 100 MG in SODIUM CHLORIDE 0.9% 230 ML IV SCH (11:52)
[2020-08-21] MEDS: SODIUM CHLORIDE 0.9% 10ML FLUSH IV SCH (14:18)
[2020-08-21 15:04] LABS: BUN Creatinine Ratio 46.1 (10-20); Calcium 8.3 mg/dl (8.5-10.1); Creatinine Clr Calc Pharmacy 41.6 ml/min; Est GFR (African American) 79.7; Est GFR (Non-African American) 68.8
--- NOTE | 2020-08-21 18:09 | Hospitalist Progress Note ---
Date of Service August 21, 2020 Assessment & Plan (1) Pneumonia due to COVID-19 virus: Acute respiratory failure with hypoxia COVID-19 pneumonia SARS-CoV-2 PCR positive. -CTA:No evidence of acute pulmonary embolism. Bilateral lower lobe bronchial wall thickening and mucous plugging with basilar atelectasis. Metallic projectile fragment within the right lower lobe. Elevation of the right hemidiaphragm CRP 15.1 Procalcitonin 0.14. -convalescent plasma less likely beneficial given duration of illness. -Continue remdesivir, dexamethasone as per protocol, Day #3 -Continue supplemental oxygen as needed (2) Acute respiratory failure with hypoxia: Management as above (3) HTN (hypertension): BP slightly elevated likely due to steroids Continue amlodipine. (4) Diabetes: Continue Lantus / NovoLog per protocol. (5) Seizure disorder: Continue levetiracetam and divalproex sodium. (6) Dementia: Monitor for delirium. (7) DVT prophylaxis: Lovenox SQ (8) Discharge planning issues: Expect to discharge back to [facility] when medically stable. Admission and Anticipated Discharge Date Admission Date: August 19, 2020 Subjective Patient is seen and examined at bedside No new complaints Intermittent cough Requiring 4 to 5 L of oxygen to maintain saturations Denies chest pain, dyspnea, dizziness, nausea, abdominal pain Offers no other complaints Review of Systems Review of Systems: All systems reviewed & are unremarkable except as noted in HPI & below Physical Exam Physical Exam: Physical Exam: Vitals signs as noted above General Appearance:Moderately built and nourished, no apparent distress Head: normocephalic, Atraumatic Eyes: normal inspection, EOMI Neck: supple, Trachea midline Respiratory/Chest: Normal breath sounds, CTA Cardiovascular: S1, S2, No murmur, Bradycardia Abdomen/GI:Soft, Non tender, Bowel sounds present Extremities/Musculoskelatal:normal inspection, no edema Neurologic/Psych:AA, grossly no focal neurological deficits Skin: normal color, warm Results & Data Results & Data ([facility]) Vital Signs (Past 12 Hours) Vital Signs Temp Pulse Pulse Pulse Resp BP Pulse Ox 08/21/20 16:37 36.9 C 56 L 16 143/79 H 92 08/21/20 16:00 58 L 08/21/20 14:55 58 L 08/21/20 13:35 56 L 16 95 08/21/20 12:00 12/29/20 10:51 36.2 C L 58 L 18 148/81 H 97 08/21/20 08:00 51 L 18 96 08/21/20 07:30 18 95 08/21/20 07:21 60 18 98 08/21/20 07:19 60 18 98 08/21/20 07:15 36.3 C L 53 L 18 156/75 H 98 08/21/20 07:00 16 96 Pulse Ox 08/21/20 16:37 08/21/20 16:00 08/21/20 14:55 08/21/20 13:35 08/21/20 12:00 96 08/21/20 10:51 08/21/20 08:00 08/21/20 07:30 08/21/20 07:21 08/21/20 07:19 08/21/20 07:15 08/21/20 07:00 Laboratory Results Short CBC 08/20/20 08/21/20 Range/Units 21:43 08:14 WBC 10.39 10.05 (4.8-10.8) K/uL Hgb 11.6 L 11.9 L (14.0-18.0) g/dL Hct 36.2 L 36.5 L (42-52) % Plt Count 169 161 (130-400) K/uL BMP 08/20/20 08/21/20 08/21/20 21:43 08:14 14:22 Sodium 135 L D 134 L 137 Potassium 4.3 5.5 H D 5.0 Chloride 102 101 103 Carbon Dioxide 26 26 26 BUN 50 H 49 H 48 H Creatinine 1.19 1.04 1.03 Glucose 171 H 203 H 141 H Calcium 7.8 L 8.3 L 8.3 L Liver Function 08/20/20 08/21/20 Range/Units 21:43 08:14 Total Bilirubin 0.2 0.4 (0.2-1) mg/dl Direct Bilirubin 0.1 0.2 D (0-0.2) mg/dl AST 40 H 50 H (15-37) U/L ALT 20 23 (12-78) U/L Alkaline Phosphatase 74 76 (45-117) U/L Albumin 2.4 L 2.6 L (3.4-5.0) gm/dl (1) Dementia Dementia behavioral disturbance: without behavioral disturbance Dementia type: unspecified type Qualified Code(s): F03.90 - Unspecified dementia without behavioral disturbance
[2020-08-21] MEDS: diphenhydrAMINE Capsule 25 MG CAP PO SCH (21:03)
[2020-08-22] MEDS: ALBUT/IPRATROP 3MG/0.5MG NEB 3 ML VIAL NEB SCH ×5 (01:02→23:34)
[2020-08-22 02:11] LABS: Appearance Urine Clear (Clear); Bacteria Urine Automated Negative (Negative); Bilirubin Urine Negative (Negative); Blood Urine Trace (Negative); Color Urine Dark Yellow; Epithelial Cell Urine Auto 20-30 /lpf (0-5); Glucose Urine UA Negative (Negative); Ketones Urine Trace (Negative); Leukocyte Esterase Urine Negative (Negative); Nitrite Urine Negative (Negative); Protein Urine Negative (Negative); RBC Urine Automated 0-4 /hpf (0-4); Urobilinogen Urine Negative (Negative)
[2020-08-22] MEDS: LEVOTHYROXINE SODIUM 50 MCG TABLET PO SCH (05:32)
[2020-08-22] MEDS: dexAMETHasone 6 MG in SYRINGE 0 ML IV SCH (08:15)
[2020-08-22] MEDS: amLODIPine BESYLATE 5 MG TAB PO SCH (08:17)
[2020-08-22] MEDS: levETIRAcetam 500 MG TAB PO SCH ×2 (08:18→20:26)
[2020-08-22] MEDS: DIVALPROEX DELAY RELEASE 500 MG TAB PO SCH ×2 (08:18→20:26)
[2020-08-22] MEDS: ENOXAPARIN INJ 30 MG/0.3 ML SYR SQ SCH ×2 (08:18→20:27)
[2020-08-22] MEDS: ASPIRIN 81 MG ECTAB PO SCH (08:18)
[2020-08-22] MEDS: DONEPEZIL HCL 10 MG TAB PO SCH (08:19)
[2020-08-22] MEDS: INSULIN ASPART 100 UNITS/ML 3 ML PEN SC SCH ×4 (08:20→20:48)
[2020-08-22] MEDS: INSULIN GLARGINE SOLOSTAR 100 UNITS/ML 3 ML PEN SC SCH ×2 (08:21→20:26)
[2020-08-22 08:43] LABS: Basophils # (auto) 0.01 K/uL (0-0.2); Basophils % (auto) 0.1 %; Hematocrit (blood only) 35.2 % (42-52); Hemoglobin 11.6 g/dL (14.0-18.0); Immature Granulocytes # (auto) 0.03 K/uL (0.00-0.02); Immature Granulocytes % (auto) 0.3 %; Lymphocytes % (auto) 10.4 %; Mean Corpuscular Hemoglobin 34.1 pg (25-34); Mean Corpuscular Volume 103.5 fL (80-100); Mean Platelet Volume 13.7 fL (7.4-10.4); Monocytes # (auto) 0.62 K/uL (0.11-0.59); Monocytes % (auto) 6.5 %; Neutrophils # (auto) 7.93 K/uL (1.4-6.5); Neutrophils % (auto) 82.7 %; Nucleated RBC # (auto) 0.29 K/uL (0-0); Platelet Count 154 K/uL (130-400); RDW Coefficient of Variation 13.2 % (11.5-14.5); RDW Standard Deviation 49.7 fL (36.4-46.3); White Blood Count 9.59 K/uL (4.8-10.8)
[2020-08-22 09:16] LABS: Alanine Aminotransferase 19 U/L (12-78); Albumin Level 2.2 gm/dl (3.4-5.0); Aspartate Aminotransferase 35 U/L (15-37); BUN Creatinine Ratio 43.5 (10-20); Blood Urea Nitrogen 44 mg/dl (7-18); Calcium 8.2 mg/dl (8.5-10.1); Carbon Dioxide 23 mmol/L (21-32); Chloride 102 mmol/L (98-107); Creatinine Clr Calc Pharmacy 43.2 ml/min; Est GFR (African American) 80.6; Est GFR (Non-African American) 69.6; Glucose 230 mg/dl (70-99); Potassium 4.8 mmol/L (3.5-5.1); Sodium 134 mmol/L (136-145)
[2020-08-22 09:19] LABS: Albumin Globulin Ratio 0.5 (0.9-2); Alkaline Phosphatase 67 U/L (45-117); Bilirubin,Total 0.3 mg/dl (0.2-1); Globulin 4.3 gm/dl (2.5-4.0); Total Protein 6.5 gm/dl (6.4-8.2)
[2020-08-22 09:36] LABS: Bilirubin Direct < 0.1 mg/dl (0-0.2)
[2020-08-22 09:41] LABS: Echinocytes 1+; Macrocytosis Present
[2020-08-22] MEDS: REMDESIVIR 100 MG in SODIUM CHLORIDE 0.9% 230 ML IV SCH (11:41)
[2020-08-22] MEDS: SODIUM CHLORIDE 0.9% 10ML FLUSH IV SCH (14:18)
--- NOTE | 2020-08-22 18:42 | Hospitalist Progress Note ---
Date of Service August 22, 2020 Assessment & Plan (1) Pneumonia due to COVID-19 virus: Acute respiratory failure with hypoxia COVID-19 pneumonia SARS-CoV-2 PCR positive. -CTA:No evidence of acute pulmonary embolism. Bilateral lower lobe bronchial wall thickening and mucous plugging with basilar atelectasis. Metallic projectile fragment within the right lower lobe. Elevation of the right hemidiaphragm CRP 15.1 Procalcitonin 0.14. -convalescent plasma less likely beneficial given duration of illness. -Continue remdesivir, dexamethasone as per protocol, Day #4 -Continue supplemental oxygen as needed -Continue current management (2) Acute respiratory failure with hypoxia: Management as above (3) HTN (hypertension): BP Variable Continue amlodipine. (4) Diabetes: Continue Lantus / NovoLog per protocol. (5) Seizure disorder: Continue levetiracetam and divalproex sodium. (6) Dementia: Monitor for delirium. (7) DVT prophylaxis: Lovenox SQ (8) Discharge planning issues: Expect to discharge back to [facility] when medically stable. Admission and Anticipated Discharge Date Admission Date: August 19, 2020 Subjective Patient is seen and examined at bedside States feeling better No new complaints Persistent intermittent cough Requiring 4 L of oxygen to maintain saturations Denies chest pain, dyspnea, dizziness, nausea, abdominal pain [employer] guards at bedside Review of Systems Review of Systems: All systems reviewed & are unremarkable except as noted in HPI & below Physical Exam Physical Exam: Physical Exam: Vitals signs as noted above General Appearance:Moderately built and nourished, no apparent distress Head: normocephalic, Atraumatic Eyes: normal inspection, EOMI Neck: supple, Trachea midline Respiratory/Chest: Normal breath sounds, CTA Cardiovascular: S1, S2, No murmur Abdomen/GI:Soft, Non tender, Bowel sounds present Extremities/Musculoskelatal:normal inspection, no edema Neurologic/Psych:AA, grossly no focal neurological deficits Skin: normal color, warm Results & Data Results & Data ([facility]) Vital Signs (Past 12 Hours) Vital Signs Temp Pulse Pulse Pulse Resp BP Pulse Ox 08/22/20 16:00 66 08/22/20 15:15 36.4 C L 75 17 121/72 91 08/22/20 14:39 69 16 97 08/22/20 12:00 12/30/20 11:20 36.5 C 66 20 115/66 94 08/22/20 07:45 68 08/22/20 07:34 69 22 93 08/22/20 07:20 36.8 C 72 23 130/94 90 Pulse Ox 08/22/20 16:00 08/22/20 15:15 08/22/20 14:39 08/22/20 12:00 98 08/22/20 11:20 08/22/20 07:45 08/22/20 07:34 08/22/20 07:20 Laboratory Results Short CBC 08/22/20 Range/Units 06:59 WBC 9.59 (4.8-10.8) K/uL Hgb 11.6 L (14.0-18.0) g/dL Hct 35.2 L (42-52) % Plt Count 154 (130-400) K/uL BMP 08/22/20 06:59 Sodium 134 L Potassium 4.8 Chloride 102 Carbon Dioxide 23 BUN 44 H Creatinine 1.02 Glucose 230 H Calcium 8.2 L Liver Function 08/22/20 Range/Units 06:59 Total Bilirubin 0.3 (0.2-1) mg/dl Direct Bilirubin < 0.1 D (0-0.2) mg/dl AST 35 (15-37) U/L ALT 19 (12-78) U/L Alkaline Phosphatase 67 (45-117) U/L Albumin 2.2 L (3.4-5.0) gm/dl Urine 08/22/20 Range/Units 01:50 Urine Color Dark Yellow Urine Appearance Clear (Clear) Urine pH 5.0 (4.5-7.5) Ur Specific [place] 1.020 (1.000-1.030) Urine Protein Negative (Negative) Urine Glucose (UA) Negative (Negative) (1) Dementia Dementia behavioral disturbance: without behavioral disturbance Dementia type: unspecified type Qualified Code(s): F03.90 - Unspecified dementia without behavioral disturbance
[2020-08-22] MEDS: diphenhydrAMINE Capsule 25 MG CAP PO SCH (20:25)
[2020-08-23] MEDS: LEVOTHYROXINE SODIUM 50 MCG TABLET PO SCH (05:52)
[2020-08-23 07:21] LABS: Basophils # (auto) 0.01 K/uL (0-0.2); Basophils % (auto) 0.1 %; Hematocrit (blood only) 38.5 % (42-52); Hemoglobin 12.7 g/dL (14.0-18.0); Immature Granulocytes # (auto) 0.04 K/uL (0.00-0.02); Immature Granulocytes % (auto) 0.4 %; Lymphocytes # (auto) 0.79 K/uL (1.2-3.4); Lymphocytes % (auto) 7.7 %; Mean Corpuscular Hemoglobin 33.5 pg (25-34); Mean Corpuscular Volume 101.6 fL (80-100); Mean Platelet Volume 13.7 fL (7.4-10.4); Monocytes # (auto) 0.46 K/uL (0.11-0.59); Monocytes % (auto) 4.5 %; Neutrophils # (auto) 9.02 K/uL (1.4-6.5); Neutrophils % (auto) 87.3 %; Nucleated RBC % (auto) 3.9 %; Platelet Count 166 K/uL (130-400); RDW Coefficient of Variation 13.3 % (11.5-14.5); Red Blood Count 3.79 M/uL (4.7-6.1); White Blood Count 10.32 K/uL (4.8-10.8)
[2020-08-23] MEDS: ALBUT/IPRATROP 3MG/0.5MG NEB 3 ML VIAL NEB SCH (07:27)
[2020-08-23 07:52] LABS: Toxic Vacuolation 1+
[2020-08-23 07:57] LABS: Albumin Level 2.5 gm/dl (3.4-5.0); BUN Creatinine Ratio 36.6 (10-20); Bilirubin Direct 0.1 mg/dl (0-0.2); Calcium 8.7 mg/dl (8.5-10.1); Creatinine Clr Calc Pharmacy 35.2 ml/min; Est GFR (African American) 63.1; Est GFR (Non-African American) 54.4; Potassium 4.7 mmol/L (3.5-5.1)
[2020-08-23 08:00] LABS: Albumin Globulin Ratio 0.5 (0.9-2); Bilirubin,Total 0.3 mg/dl (0.2-1); Globulin 5.2 gm/dl (2.5-4.0); Total Protein 7.7 gm/dl (6.4-8.2)
[2020-08-23] MEDS: amLODIPine BESYLATE 5 MG TAB PO SCH (08:59)
[2020-08-23] MEDS: ENOXAPARIN INJ 30 MG/0.3 ML SYR SQ SCH ×2 (08:59→19:32)
[2020-08-23] MEDS: dexAMETHasone 6 MG in SYRINGE 0 ML IV SCH (09:00)
[2020-08-23] MEDS: ASPIRIN 81 MG ECTAB PO SCH (09:00)
[2020-08-23] MEDS: DONEPEZIL HCL 10 MG TAB PO SCH (09:00)
[2020-08-23] MEDS: levETIRAcetam 500 MG TAB PO SCH ×2 (09:01→19:32)
[2020-08-23] MEDS: DIVALPROEX DELAY RELEASE 500 MG TAB PO SCH ×2 (09:01→19:32)
[2020-08-23] MEDS: INSULIN ASPART 100 UNITS/ML 3 ML PEN SC SCH ×4 (09:03→20:25)
[2020-08-23] MEDS: INSULIN GLARGINE SOLOSTAR 100 UNITS/ML 3 ML PEN SC SCH ×2 (09:03→20:25)
[2020-08-23] MEDS: REMDESIVIR 100 MG in SODIUM CHLORIDE 0.9% 230 ML IV SCH (12:11)
[2020-08-23] MEDS: SODIUM CHLORIDE 0.9% 10ML FLUSH IV SCH (13:36)
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
[2020-08-23] MEDS: diphenhydrAMINE Capsule 25 MG CAP PO SCH (19:36)
[2020-08-24] MEDS: LEVOTHYROXINE SODIUM 50 MCG TABLET PO SCH (05:44)
[2020-08-24 06:50] LABS: Albumin Level 2.1 gm/dl (3.4-5.0); BUN Creatinine Ratio 43.9 (10-20); Bilirubin,Total 0.3 mg/dl (0.2-1); Calcium 8.3 mg/dl (8.5-10.1); Est GFR (African American) 69.8; Est GFR (Non-African American) 60.2; Magnesium 3.1 mg/dl (1.8-2.4); Potassium 4.2 mmol/L (3.5-5.1); Total Protein 6.7 gm/dl (6.4-8.2)
[2020-08-24] MEDS: levETIRAcetam 500 MG TAB PO SCH ×2 (09:20→20:57)
[2020-08-24] MEDS: DONEPEZIL HCL 10 MG TAB PO SCH (09:20)
[2020-08-24] MEDS: amLODIPine BESYLATE 5 MG TAB PO SCH (09:20)
[2020-08-24] MEDS: ASPIRIN 81 MG ECTAB PO SCH (09:20)
[2020-08-24] MEDS ORDERED: PHARMACY GLYCEMIC MGMT CONSULT PRN (09:20)
[2020-08-24] MEDS: DIVALPROEX DELAY RELEASE 500 MG TAB PO SCH ×2 (09:20→20:58)
[2020-08-24] MEDS: ENOXAPARIN INJ 30 MG/0.3 ML SYR SQ SCH ×2 (09:21→21:00)
[2020-08-24] MEDS: dexAMETHasone 6 MG in SYRINGE 0 ML IV SCH (09:22)
[2020-08-24] MEDS: INSULIN ASPART 100 UNITS/ML 3 ML PEN SC SCH ×4 (10:50→21:07)
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
[2020-08-24] MEDS: SODIUM CHLORIDE 0.9% 10ML FLUSH IV SCH (15:11)
--- NOTE | 2020-08-24 16:03 | Pharmacy Report ---
Pharmacy Glycemic Short Note 2 - Date of Service August 24, 2020 - Glycemic Short BSG Results (Last 24 hours): 08/23/20 08/23/20 08/24/20 16:51 20:19 05:28 Glucose 17 L* POC Glucose 278 H 142 H 08/24/20 08/24/20 08/24/20 06:52 06:59 07:00 Glucose POC Glucose 26 L* 313 H* 161 H 08/24/20 08/24/20 08/24/20 07:04 07:25 11:20 Glucose POC Glucose 114 H 222 H 230 H OUTPATIENT ANTIDIABETIC REGIMEN: * Lantus 5 units SQ qHS + regular insulin SS * A1c ? ASSESSMENT: * Jonathan is a 80 yo male admitted with COVID-19 * Pharmacy was consulted 08/24/20 AM due to severe hypoglycemia; BSG 17, 26 mg/dL. I suspect this was due to Lantus, which was being titrated to cover steroid induced hyperglycemia from dexamethasone. * Hold AM Lantus. Resume reduced dose of Lantus at dinner time if BSG remains > 180 mg/dL. * Add NPH on 08/25 to cover for steroid induced hyperglycemia and will likely be able to resume home dose of Lantus 5 units qHS. PLAN FOR INPATIENT GLYCEMIC CONTROL: * Hold outpatient oral diabetes medications * Basal insulin * Lantus 0-5 units SQ with dinner (5 units for BSG of 180 mg/dL or more) * Bolus insulin * NovoLog per scale ACHS or Q6hrs while NPO * Goal Range: Low 120 mg/dL - High 160 mg/dL * Correction Factor: 20 mg/dL/unit * Nutritional / Prandial insulin per carb ratio of 1 unit per 10 grams CHO consumed
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
[2020-08-24] MEDS ORDERED: FUROSEMIDE 20 MG in SYRINGE 0 ML IV ONE (16:26)
[2020-08-24] MEDS ORDERED: INSULIN GLARGINE SOLOSTAR 100 UNITS/ML 3 ML PEN SC SCH (16:30)
[2020-08-24] MEDS ORDERED: FUROSEMIDE 40 MG/4 ML VIAL IV ONE (16:45)
[2020-08-24] MEDS: ACETYLCYSTEINE 10% INHAL SOLN 4 ML **DISPENSED BY RESP. INH SCH ×2 (16:45→19:42)
[2020-08-24 17:47] LABS: D Dimer 350 ug/L FEU (0-500)
[2020-08-24] MEDS: ALBUT/IPRATROP 3MG/0.5MG NEB 3 ML VIAL NEB PRN (19:41)
[2020-08-24] MEDS: diphenhydrAMINE Capsule 25 MG CAP PO SCH (21:04)
[2020-08-25] MEDS: LEVOTHYROXINE SODIUM 50 MCG TABLET PO SCH (05:56)
[2020-08-25] MEDS: ALBUT/IPRATROP 3MG/0.5MG NEB 3 ML VIAL NEB PRN (07:16)
[2020-08-25] MEDS: ACETYLCYSTEINE 10% INHAL SOLN 4 ML **DISPENSED BY RESP. INH SCH (07:17)
[2020-08-25 07:51] LABS: BUN Creatinine Ratio 42.3 (10-20); Creatinine Clr Calc Pharmacy 57.2 ml/min; Est GFR (African American) 96.1; Est GFR (Non-African American) 82.9; Magnesium 2.9 mg/dl (1.8-2.4); Potassium 4.5 mmol/L (3.5-5.1)
[2020-08-25] MEDS: INSULIN ASPART 100 UNITS/ML 3 ML PEN SC SCH ×3 (08:00→21:53)
[2020-08-25] MEDS: amLODIPine BESYLATE 5 MG TAB PO SCH (08:20)
[2020-08-25] MEDS: dexAMETHasone 6 MG in SYRINGE 0 ML IV SCH (08:20)
[2020-08-25] MEDS: ASPIRIN 81 MG ECTAB PO SCH (08:21)
[2020-08-25] MEDS: DONEPEZIL HCL 10 MG TAB PO SCH (08:21)
[2020-08-25] MEDS: DIVALPROEX DELAY RELEASE 500 MG TAB PO SCH ×2 (08:21→21:51)
[2020-08-25] MEDS: levETIRAcetam 500 MG TAB PO SCH ×2 (08:21→21:51)
[2020-08-25] MEDS: ENOXAPARIN INJ 30 MG/0.3 ML SYR SQ SCH ×2 (08:22→21:52)
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
[2020-08-25] MEDS ORDERED: NovoLIN-N (NPH) PER UNIT CHARGE SQ SCH (09:00)
[2020-08-25] MEDS: cefTRIAXone SODIUM 1,000 MG in DEXTROSE 5% 50 ML IV SCH (09:21)
[2020-08-25] MEDS: DOXYCYCLINE HYCLATE 100 MG CAP PO SCH ×2 (10:00→22:02)
[2020-08-25] MEDS ORDERED: INSULIN HUMAN NPH SC ONE (12:00)
[2020-08-25] MEDS ORDERED: INSULIN HUMAN REGULAR PER UNIT 5 UNITS in SYRINGE 4.95 ML IV ONE (12:15)
--- NOTE | 2020-08-25 13:38 | Pharmacy Report ---
Pharmacy Glycemic Short Note 2 - Date of Service August 25, 2020 - Glycemic Short BSG Results (Last 24 hours): 08/24/20 08/24/20 08/25/20 16:48 20:30 07:05 Glucose 79 POC Glucose 70 150 H 08/25/20 08/25/20 08/25/20 07:07 11:24 11:29 Glucose POC Glucose 91 447 H* 506 H* OUTPATIENT ANTIDIABETIC REGIMEN: * Lantus 5 units SQ qHS + regular insulin SS * A1c ? ASSESSMENT: 08/25 * Patient received 7 units of insulin yesterday, no basal insulin * BSGs still on lower end of range this AM - fasting 79 mg/dL. Previous day very low BSG - likely related to too much basal * Patient not eating this AM - held AM basal. Lunch time BSG elevated 447 mg/dL - contacted nurse and patient not snacking / plan to start NPH low dose 10 units to cover steroids, also small IV bolus. BSG likely related to steroids, however surprising that value is that elevated * Lantus HS per scale. Spoke with provider and we will trial IV insulin bolus/SQ first. If BSGs remain elevated may need to consider insulin drip 08/24 * Jonathan is a 80 yo male admitted with COVID-19 * Pharmacy was consulted 08/24/20 AM due to severe hypoglycemia; BSG 17, 26 mg/dL. I suspect this was due to Lantus, which was being titrated to cover steroid induced hyperglycemia from dexamethasone. * Hold AM Lantus. Resume reduced dose of Lantus at dinner time if BSG remains > 180 mg/dL. * Add NPH on 08/25 to cover for steroid induced hyperglycemia and will likely be able to resume home dose of Lantus 5 units qHS. PLAN FOR INPATIENT GLYCEMIC CONTROL: * Hold outpatient oral diabetes medications * Basal insulin * NPH 10 units daily with DXM * Lantus 0-10 units HS * Bolus insulin * NovoLog per scale ACHS or Q6hrs while NPO * Goal Range: Low 120 mg/dL - High 160 mg/dL * Correction Factor: 20 mg/dL/unit * Nutritional / Prandial insulin per carb ratio of 1 unit per 10 grams CHO consumed
[2020-08-25] MEDS ORDERED: INSULIN REGULAR 250 UNITS in SODIUM CHLORIDE 0.9% 247.5 ML IV SCH (15:15)
[2020-08-25] MEDS ORDERED: INSULIN HUMAN REGULAR IV BOLUS 2 UNITS in SYRINGE 0 ML IV ONE (15:15)
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
[2020-08-25] MEDS ORDERED: INSULIN ASPART 100 UNITS/ML 3 ML PEN SC SCH (16:30)
[2020-08-25] MEDS: SODIUM CHLOR 7% 4 ML NEB NEB SCH (19:21)
[2020-08-25] MEDS ORDERED: INSULIN GLARGINE SOLOSTAR 100 UNITS/ML 3 ML PEN SC SCH ×2 (21:00)
[2020-08-25] MEDS: diphenhydrAMINE Capsule 25 MG CAP PO SCH (21:51)
[2020-08-26] MEDS: INSULIN ASPART 100 UNITS/ML 3 ML PEN SC SCH ×6 (00:26→21:12)
[2020-08-26] MEDS: LEVOTHYROXINE SODIUM 50 MCG TABLET PO SCH (06:17)
[2020-08-26 07:11] LABS: Hemoglobin 10.7 g/dL (14.0-18.0); Mean Corpuscular Hemoglobin 34.3 pg (25-34); Mean Corpuscular Hgb Conc 33.4 g/dL (32-36); Mean Corpuscular Volume 102.6 fL (80-100); Mean Platelet Volume 13.6 fL (7.4-10.4); Nucleated RBC % (auto) 0.6 %; Platelet Count 202 K/uL (130-400); RDW Coefficient of Variation 13.9 % (11.5-14.5); RDW Standard Deviation 52.2 fL (36.4-46.3); Red Blood Count 3.12 M/uL (4.7-6.1); White Blood Count 16.36 K/uL (4.8-10.8)
[2020-08-26] MEDS: ALBUT/IPRATROP 3MG/0.5MG NEB 3 ML VIAL NEB PRN (07:31)
[2020-08-26] MEDS: SODIUM CHLOR 7% 4 ML NEB NEB SCH ×2 (07:31→19:33)
[2020-08-26 07:35] LABS: BUN Creatinine Ratio 51.8 (10-20); Calcium 8.6 mg/dl (8.5-10.1); Creatinine Clr Calc Pharmacy 52.3 ml/min; Est GFR (African American) 90.2; Est GFR (Non-African American) 77.8; Potassium 5.1 mmol/L (3.5-5.1)
[2020-08-26] MEDS: cefTRIAXone SODIUM 1,000 MG in DEXTROSE 5% 50 ML IV SCH (09:15)
[2020-08-26] MEDS: dexAMETHasone 6 MG in SYRINGE 0 ML IV SCH (09:15)
[2020-08-26] MEDS: DIVALPROEX DELAY RELEASE 500 MG TAB PO SCH ×2 (09:16→21:05)
[2020-08-26] MEDS: levETIRAcetam 500 MG TAB PO SCH ×2 (09:16→21:04)
[2020-08-26] MEDS: DOXYCYCLINE HYCLATE 100 MG CAP PO SCH ×2 (09:17→21:13)
[2020-08-26] MEDS: amLODIPine BESYLATE 5 MG TAB PO SCH (09:17)
[2020-08-26] MEDS: ASPIRIN 81 MG ECTAB PO SCH (09:17)
[2020-08-26] MEDS: ENOXAPARIN INJ 30 MG/0.3 ML SYR SQ SCH ×2 (09:18→21:07)
[2020-08-26] MEDS: DONEPEZIL HCL 10 MG TAB PO SCH (09:18)
[2020-08-26] MEDS: INSULIN HUMAN NPH SC SCH (09:18)
[2020-08-26] MEDS ORDERED: SENNA 8.6 MG TAB PO SCH (12:00)
--- NOTE | 2020-08-26 14:01 | Pharmacy Report ---
Pharmacy Glycemic Short Note 2 - Date of Service August 26, 2020 - Glycemic Short BSG Results (Last 24 hours): 08/25/20 08/25/20 08/25/20 14:58 16:54 17:59 Glucose POC Glucose 436 H* 297 H 98 08/25/20 08/25/20 08/25/20 18:01 18:35 19:31 Glucose POC Glucose 111 H 116 H 94 08/25/20 08/26/20 08/26/20 21:05 00:16 04:39 Glucose POC Glucose 87 71 130 H 08/26/20 08/26/20 08/26/20 05:19 07:33 11:19 Glucose 99 POC Glucose 148 H 292 H OUTPATIENT ANTIDIABETIC REGIMEN: * Lantus 5 units SQ qHS + regular insulin SS * A1c ? ASSESSMENT: 08/26 * Patient started on insulin drip yesterday, only running for a few hours * Received about ~28 units of insulin yesterday, of which 10 were NPH * Will order NPH 12 units for this AM to help with coverage of steroids. Plan to add scale for Lantus at HS if needed 08/25 * Patient received 7 units of insulin yesterday, no basal insulin * BSGs still on lower end of range this AM - fasting 79 mg/dL. Previous day very low BSG - likely related to too much basal * Patient not eating this AM - held AM basal. Lunch time BSG elevated 447 mg/dL - contacted nurse and patient not snacking / plan to start NPH low dose 10 units to cover steroids, also small IV bolus. BSG likely related to steroids, however surprising that value is that elevated * Lantus HS per scale. Spoke with provider and we will trial IV insulin bolus/SQ first. If BSGs remain elevated may need to consider insulin drip 08/24 * Jonathan is a 80 yo male admitted with COVID-19 * Pharmacy was consulted 08/24/20 AM due to severe hypoglycemia; BSG 17, 26 mg/dL. I suspect this was due to Lantus, which was being titrated to cover steroid induced hyperglycemia from dexamethasone. * Hold AM Lantus. Resume reduced dose of Lantus at dinner time if BSG remains > 180 mg/dL. * Add NPH on 08/25 to cover for steroid induced hyperglycemia and will likely be able to resume home dose of Lantus 5 units qHS. PLAN FOR INPATIENT GLYCEMIC CONTROL: * Hold outpatient oral diabetes medications * Basal insulin * NPH 12 units daily with DXM * Lantus 0-5 units HS * Bolus insulin * NovoLog per scale ACHS or Q6hrs while NPO * Goal Range: Low 120 mg/dL - High 160 mg/dL * Correction Factor: 30 mg/dL/unit * Nutritional / Prandial insulin per carb ratio of 1 unit per 8 grams CHO consumed
--- NOTE | 2020-08-26 16:02 | Hospitalist Progress Note ---
Date of Service August 26, 2020 Assessment & Plan (1) Pneumonia due to COVID-19 virus: Acute respiratory failure with hypoxia COVID-19 pneumonia SARS-CoV-2 PCR positive. -? Mucous plugging Vs intrapulmonary shunt -Possible secondary bacterial pneumonia -Chronic Right Hemidiaphragmatic elevation -CTA:No evidence of acute pulmonary embolism. Bilateral lower lobe bronchial wall thickening and mucous plugging with basilar atelectasis. Metallic projectile fragment within the right lower lobe. Elevation of the right hemidiaphragm CRP 15.1 Procalcitonin 0.14> 1.52 D-Dimer trended down -convalescent plasma less likely beneficial given duration of illness. -Completed 5-day course of remdesivir -Continue dexamethasone as per protocol, Day #8/10 -Requiring 4 L of oxygen to maintain saturations -Continue Vibration vest, hypertonic saline Nebs -Encourage frequent proning -Appreciate Pulmonology Input -Continue empiric antibiotics -Respiratory status slightly better today -Continue current medications (2) Acute respiratory failure with hypoxia: Management as above (3) HTN (hypertension): BP Variable Continue amlodipine. (4) Diabetes: HbA1C:9.8 Hypoglycemic Episode, Now hyperglycemic BGs very Variable Continue Lantus / NovoLog per protocol. Consulted Pharmacy for Glycemic Management (5) Seizure disorder: Continue levetiracetam and divalproex sodium. (6) Dementia: Monitor for delirium. (7) DVT prophylaxis: Lovenox SQ (8) Discharge planning issues: Expect to discharge back to [facility] when medically stable. Admission and Anticipated Discharge Date Admission Date: August 19, 2020 Subjective Patient is seen and examined at bedside Poor historian Reports constipation Denies significant cough Also denies chest pain, dyspnea, dizziness, nausea, abdominal pain Saturating low 90s on 4 L of supplemental oxygen Blood glucose levels variable Half-Way guards at bedside Review of Systems Review of Systems: All systems reviewed & are unremarkable except as noted in HPI & below Physical Exam Physical Exam: Physical Exam: Vitals signs as noted above General Appearance:Moderately built and nourished, no apparent distress Head: normocephalic, Atraumatic Eyes: normal inspection, EOMI Neck: supple, Trachea midline Respiratory/Chest: Decreased breath sounds, CTA Cardiovascular: S1, S2, No murmur Abdomen/GI:Soft, Non tender, Bowel sounds present Extremities/Musculoskelatal:normal inspection, no edema Neurologic/Psych:AA, grossly no focal neurological deficits Skin: normal color, warm Results & Data Results & Data ([facility]) Vital Signs (Past 12 Hours) Vital Signs Temp Pulse Pulse Resp BP Pulse Ox 08/26/20 15:33 36.6 C 80 22 122/63 92 08/26/20 11:58 93 08/26/20 11:20 36.7 C 81 19 157/69 H 99 08/26/20 08:27 36.4 C L 76 25 H 134/86 95 08/26/20 07:35 84 20 97 Laboratory Results Short CBC 08/26/20 Range/Units 05:19 WBC 16.36 H (4.8-10.8) K/uL Hgb 10.7 L (14.0-18.0) g/dL Hct 32.0 L (42-52) % Plt Count 202 (130-400) K/uL BMP 08/26/20 05:19 Sodium 138 Potassium 5.1 Chloride 105 Carbon Dioxide 29 BUN 48 H Creatinine 0.93 Glucose 99 Calcium 8.6 (1) Dementia Dementia behavioral disturbance: without behavioral disturbance Dementia type: unspecified type Qualified Code(s): F03.90 - Unspecified dementia without behavioral disturbance
[2020-08-26] MEDS ORDERED: INSULIN GLARGINE SOLOSTAR 100 UNITS/ML 3 ML PEN SC SCH (21:00)
[2020-08-26] MEDS: DOCUSATE SODIUM/SENNA 50/8.6MG TAB PO SCH (21:06)
[2020-08-26] MEDS: diphenhydrAMINE Capsule 25 MG CAP PO SCH (21:11)
[2020-08-27] MEDS ORDERED: INSULIN ASPART 100 UNITS/ML 3 ML PEN SC SCH
[2020-08-27] MEDS: LEVOTHYROXINE SODIUM 50 MCG TABLET PO SCH (06:27)
[2020-08-27] MEDS: ALBUT/IPRATROP 3MG/0.5MG NEB 3 ML VIAL NEB PRN (07:30)
[2020-08-27] MEDS: SODIUM CHLOR 7% 4 ML NEB NEB SCH ×2 (07:30→19:16)
[2020-08-27] MEDS: dexAMETHasone 6 MG in SYRINGE 0 ML IV SCH (08:25)
[2020-08-27] MEDS: ASPIRIN 81 MG ECTAB PO SCH (08:26)
[2020-08-27] MEDS: cefTRIAXone SODIUM 1,000 MG in DEXTROSE 5% 50 ML IV SCH (08:26)
[2020-08-27] MEDS: DOXYCYCLINE HYCLATE 100 MG CAP PO SCH ×2 (08:26→20:11)
[2020-08-27] MEDS: DONEPEZIL HCL 10 MG TAB PO SCH (08:27)
[2020-08-27] MEDS: levETIRAcetam 500 MG TAB PO SCH ×2 (08:27→20:11)
[2020-08-27] MEDS: DIVALPROEX DELAY RELEASE 500 MG TAB PO SCH ×2 (08:27→20:11)
[2020-08-27] MEDS: ENOXAPARIN INJ 30 MG/0.3 ML SYR SQ SCH ×2 (08:28→20:12)
[2020-08-27] MEDS: amLODIPine BESYLATE 5 MG TAB PO SCH (08:28)
[2020-08-27] MEDS: INSULIN HUMAN NPH SC SCH (08:29)
[2020-08-27] MEDS: DOCUSATE SODIUM/SENNA 50/8.6MG TAB PO SCH ×2 (08:30→20:11)
[2020-08-27] MEDS: INSULIN ASPART 100 UNITS/ML 3 ML PEN SC SCH ×4 (08:32→20:33)
--- NOTE | 2020-08-27 12:26 | Pharmacy Report ---
Pharmacy Glycemic Short Note 2 - Date of Service August 27, 2020 - Glycemic Short BSG Results (Last 24 hours): 08/26/20 08/26/20 08/27/20 16:14 20:19 00:47 POC Glucose 117 H 114 H 84 08/27/20 08/27/20 07:59 11:14 POC Glucose 134 H 318 H* OUTPATIENT ANTIDIABETIC REGIMEN: * Lantus 5 units SQ qHS + regular insulin SS * A1c ? ASSESSMENT: 08/27 * 38 units administered over last 24 hrs while tolerating a diet * Dexamethasone 6mg IV daily continues, appears that 2 more days remain * Fasting BSG 134 this AM. He received no Lantus yesterday, but did receive 12 units NPH - will resume low dose Lantus as bedtime * NPH + Novolog did control 2 of 3 post-prandial BSGs yesterday. Prelunch hyperglycemia problematic. Will continue the same NPH dose given fall in BSGs in the afternoon. Will increase breakfast and lunch Novolog doses while lowering dinner and HS doses. 08/26 * Patient started on insulin drip yesterday, only running for a few hours * Received about ~28 units of insulin yesterday, of which 10 were NPH * Will order NPH 12 units for this AM to help with coverage of steroids. Plan to add scale for Lantus at HS if needed 08/25 * Patient received 7 units of insulin yesterday, no basal insulin * BSGs still on lower end of range this AM - fasting 79 mg/dL. Previous day very low BSG - likely related to too much basal * Patient not eating this AM - held AM basal. Lunch time BSG elevated 447 mg/dL - contacted nurse and patient not snacking / plan to start NPH low dose 10 units to cover steroids, also small IV bolus. BSG likely related to steroids, however surprising that value is that elevated * Lantus HS per scale. Spoke with provider and we will trial IV insulin bolus/SQ first. If BSGs remain elevated may need to consider insulin drip 08/24 * Jonathan is a 80 yo male admitted with COVID-19 * Pharmacy was consulted 08/24/20 AM due to severe hypoglycemia; BSG 17, 26 mg/dL. I suspect this was due to Lantus, which was being titrated to cover steroid induced hyperglycemia from dexamethasone. * Hold AM Lantus. Resume reduced dose of Lantus at dinner time if BSG remains > 180 mg/dL. * Add NPH on 08/25 to cover for steroid induced hyperglycemia and will likely be able to resume home dose of Lantus 5 units qHS. PLAN FOR INPATIENT GLYCEMIC CONTROL: * Hold outpatient oral diabetes medications * Basal insulin * NPH 12 units daily w/ morning dexamethasone 6mg IV * Lantus 3 units SQ HS * Bolus insulin * NovoLog per scale ACHS or Q6hrs while NPO * Goal Range: Low 120 mg/dL - High 160 mg/dL * Correction Factor: 30 mg/dL/unit * Nutritional / Prandial insulin per carb ratio of 1 unit per 7 grams CHO consumed with breakfast and lunch, 1 unit per 10gm CHO w/ dinner and HS
--- NOTE | 2020-08-27 17:44 | Hospitalist Progress Note ---
Date of Service August 27, 2020 Assessment & Plan (1) Pneumonia due to COVID-19 virus: Acute respiratory failure with hypoxia COVID-19 pneumonia SARS-CoV-2 PCR positive. -? Mucous plugging Vs intrapulmonary shunt -Possible secondary bacterial pneumonia -Chronic Right Hemidiaphragmatic elevation -CTA:No evidence of acute pulmonary embolism. Bilateral lower lobe bronchial wall thickening and mucous plugging with basilar atelectasis. Metallic projectile fragment within the right lower lobe. Elevation of the right hemidiaphragm CRP 15.1 Procalcitonin 0.14> 1.52 D-Dimer trended down -convalescent plasma less likely beneficial given duration of illness. -Completed 5-day course of remdesivir -Continue dexamethasone as per protocol, Day #9/10 -Requiring 4 L of oxygen to maintain saturations -Continue Vibration vest, hypertonic saline Nebs -Encourage frequent proning -Appreciate Pulmonology Input -Continue empiric antibiotics -Critical but stable -Repeat chest x-ray tomorrow (2) Acute respiratory failure with hypoxia: Management as above (3) HTN (hypertension): BP Variable Continue amlodipine. (4) Diabetes: HbA1C:9.8 Hypoglycemic Episode, Now hyperglycemic BGs very Variable Continue Lantus / NovoLog per protocol. Consulted Pharmacy for Glycemic Management (5) Seizure disorder: Continue levetiracetam and divalproex sodium. (6) Dementia: Monitor for delirium. (7) DVT prophylaxis: Lovenox SQ (8) Discharge planning issues: Expect to discharge back to [facility] when medically stable. Admission and Anticipated Discharge Date Admission Date: August 19, 2020 Subjective Patient is seen and examined at bedside Poor historian On and off desaturates No new complaints Lying in bed comfortably No significant cough Denies chest pain, dizziness, nausea, abdominal pain Saturating well on 4-5 L of supplemental oxygen [employer] guards at bedside Physical Exam Physical Exam: Physical Exam: Vitals signs as noted above General Appearance:Moderately built and nourished, no apparent distress Head: normocephalic, Atraumatic Eyes: normal inspection, EOMI Neck: supple, Trachea midline Respiratory/Chest: Decreased breath sounds, CTA Cardiovascular: S1, S2, No murmur Abdomen/GI:Soft, Non tender, Bowel sounds present Extremities/Musculoskelatal:normal inspection, no edema Neurologic/Psych:AA, grossly no focal neurological deficits Skin: normal color, warm Results & Data Results & Data ([facility]) Vital Signs (Past 12 Hours) Vital Signs Temp Pulse Pulse Resp BP Pulse Ox Pulse Ox 08/27/20 14:49 36.6 C 71 18 96/73 L 95 08/27/20 12:00 98 08/27/20 10:49 36.4 C L 72 20 110/55 L 93 08/27/20 08:56 36.6 C 87 24 117/84 89 L 08/27/20 07:36 72 22 94 (1) Dementia Dementia behavioral disturbance: without behavioral disturbance Dementia type: unspecified type Qualified Code(s): F03.90 - Unspecified dementia without behavioral disturbance
[2020-08-27] MEDS: INSULIN GLARGINE SOLOSTAR 100 UNITS/ML 3 ML PEN SC SCH (20:32)
[2020-08-27] MEDS: diphenhydrAMINE Capsule 25 MG CAP PO SCH (21:01)
[2020-08-28] MEDS: INSULIN ASPART 100 UNITS/ML 3 ML PEN SC SCH ×6 (00:10→20:26)
[2020-08-28] MEDS ORDERED: INSULIN ASPART 100 UNITS/ML 3 ML PEN SC ONE (02:00)
[2020-08-28] MEDS: LEVOTHYROXINE SODIUM 50 MCG TABLET PO SCH (06:17)
[2020-08-28 07:28] LABS: Basophils # (auto) 0.02 K/uL (0-0.2); Basophils % (auto) 0.2 %; Hematocrit (blood only) 30.7 % (42-52); Hemoglobin 10.4 g/dL (14.0-18.0); Immature Granulocytes # (auto) 0.19 K/uL (0.00-0.02); Immature Granulocytes % (auto) 1.5 %; Lymphocytes # (auto) 0.88 K/uL (1.2-3.4); Lymphocytes % (auto) 7.1 %; Mean Corpuscular Hemoglobin 34.6 pg (25-34); Mean Corpuscular Hgb Conc 33.9 g/dL (32-36); Mean Platelet Volume 12.3 fL (7.4-10.4); Monocytes # (auto) 0.45 K/uL (0.11-0.59); Monocytes % (auto) 3.6 %; Neutrophils # (auto) 10.82 K/uL (1.4-6.5); Neutrophils % (auto) 87.6 %; Nucleated RBC # (auto) 0.11 K/uL (0-0); Nucleated RBC % (auto) 0.9 %; Platelet Count 262 K/uL (130-400); RDW Coefficient of Variation 13.8 % (11.5-14.5); RDW Standard Deviation 51.8 fL (36.4-46.3); Red Blood Count 3.01 M/uL (4.7-6.1); White Blood Count 12.36 K/uL (4.8-10.8)
[2020-08-28] MEDS ORDERED: INSULIN ASPART 100 UNITS/ML 3 ML PEN SC SCH ×2 (07:30→11:30)
[2020-08-28 07:56] LABS: BUN Creatinine Ratio 53.8 (10-20); Calcium 8.5 mg/dl (8.5-10.1); Creatinine Clr Calc Pharmacy 51.2 ml/min; Est GFR (African American) 84.6; Magnesium 2.9 mg/dl (1.8-2.4); Potassium 4.5 mmol/L (3.5-5.1)
[2020-08-28] MEDS: cefTRIAXone SODIUM 1,000 MG in DEXTROSE 5% 50 ML IV SCH (08:17)
[2020-08-28] MEDS: dexAMETHasone 6 MG in SYRINGE 0 ML IV SCH (08:28)
[2020-08-28] MEDS: ENOXAPARIN INJ 30 MG/0.3 ML SYR SQ SCH ×2 (08:28→20:34)
[2020-08-28] MEDS: DOCUSATE SODIUM/SENNA 50/8.6MG TAB PO SCH ×2 (08:38→20:37)
--- NOTE | 2020-08-28 08:39 | XRay Report ---
XR chest 1V portable CLINICAL HISTORY: COVID, Hypoxia COMPARISON STUDY: 08/24/2020 FINDINGS: The cardiac and mediastinal contours remain stable. There is persistent elevation of the ri ght hemidiaphragm. Slightly prominent basilar markings are likely atelectatic. There is no lobar cons olidation.[ IMPRESSION: Chronic elevation right hemidiaphragm. Mild basilar atelectasis. ACT 112: Negative or not required by law. Electronically signed by: Ryan Moreira M.D. 08/28/2020 8:37 AM
[2020-08-28] MEDS: DIVALPROEX DELAY RELEASE 500 MG TAB PO SCH ×2 (08:40→20:35)
[2020-08-28] MEDS: DOXYCYCLINE HYCLATE 100 MG CAP PO SCH ×2 (08:40→20:35)
[2020-08-28] MEDS: ASPIRIN 81 MG ECTAB PO SCH (08:40)
[2020-08-28] MEDS: DONEPEZIL HCL 10 MG TAB PO SCH (08:40)
[2020-08-28] MEDS: amLODIPine BESYLATE 5 MG TAB PO SCH (08:40)
[2020-08-28] MEDS: levETIRAcetam 500 MG TAB PO SCH ×2 (08:40→20:35)
[2020-08-28] MEDS ORDERED: INSULIN HUMAN NPH SC SCH ×3 (09:00)
[2020-08-28] MEDS: INSULIN HUMAN NPH SC SCH (11:34)
[2020-08-28] MEDS: ALBUT/IPRATROP 3MG/0.5MG NEB 3 ML VIAL NEB PRN (11:43)
[2020-08-28] MEDS: SODIUM CHLOR 7% 4 ML NEB NEB SCH ×2 (11:43→19:13)
--- NOTE | 2020-08-28 13:22 | Pharmacy Report ---
Pharmacy Glycemic Short Note 2 - Date of Service August 28, 2020 - Glycemic Short BSG Results (Last 24 hours): 08/27/20 08/27/20 08/27/20 16:43 20:27 23:51 Glucose POC Glucose 287 H 298 H 372 H* 08/28/20 08/28/20 08/28/20 04:09 06:53 08:08 Glucose 69 L POC Glucose 130 H 54 L* 08/28/20 11:59 Glucose POC Glucose 241 H OUTPATIENT ANTIDIABETIC REGIMEN: * Lantus 5 units SQ qHS + regular insulin SS * A1c ? ASSESSMENT: 08/28 * 57 units administered over last 24 hrs while tolerating a diet * Patient's response to steroids, carb intake and insulin is quite labile. Although he carries a dx of Type 2 DM, his BSG pattern and insulin requirements resemble that of a Type 1. * Fasting hypoglycemia seen this AM. FBS = 54-69 w/ 3 units Lantus on board, 12 units NPH (0.2units/kg) given w/ AM dexamethasone, BUT he also required substantial correctional insulin doses last evening for BSGs climbing as high as 372. This AM's fasting hypoglycemia is likely attributed to the 14 units of Novolog correction given late yesterday, and due to the dissipation of dexamethasone effect overnight. Will lessen correctional insulin doses given in the PM. * NPH dose will be increased to 20 units (0.33units/kg) w/ AM dexamethasone given poor control of post-prandial BSGs yesterday. Prandial Novolog doses will also increase. 08/27 * 38 units administered over last 24 hrs while tolerating a diet * Dexamethasone 6mg IV daily continues, appears that 2 more days remain * Fasting BSG 134 this AM. He received no Lantus yesterday, but did receive 12 units NPH - will resume low dose Lantus as bedtime * NPH + Novolog did control 2 of 3 post-prandial BSGs yesterday. Prelunch hyperglycemia problematic. Will continue the same NPH dose given fall in BSGs in the afternoon. Will increase breakfast and lunch Novolog doses while lowering dinner and HS doses. 08/26 * Patient started on insulin drip yesterday, only running for a few hours * Received about ~28 units of insulin yesterday, of which 10 were NPH * Will order NPH 12 units for this AM to help with coverage of steroids. Plan to add scale for Lantus at HS if needed /2 * Patient received 7 units of insulin yesterday, no basal insulin * BSGs still on lower end of range this AM - fasting 79 mg/dL. Previous day very low BSG - likely related to too much basal * Patient not eating this AM - held AM basal. Lunch time BSG elevated 447 mg/dL - contacted nurse and patient not snacking / plan to start NPH low dose 10 units to cover steroids, also small IV bolus. BSG likely related to steroids, however surprising that value is that elevated * Lantus HS per scale. Spoke with provider and we will trial IV insulin bolus/SQ first. If BSGs remain elevated may need to consider insulin drip 08/24 * Jonathan is a 80 yo male admitted with COVID-19 * Pharmacy was consulted 08/24/20 AM due to severe hypoglycemia; BSG 17, 26 mg/dL. I suspect this was due to Lantus, which was being titrated to cover steroid induced hyperglycemia from dexamethasone. * Hold AM Lantus. Resume reduced dose of Lantus at dinner time if BSG remains > 180 mg/dL. * Add NPH on 08/25 to cover for steroid induced hyperglycemia and will likely be able to resume home dose of Lantus 5 units qHS. PLAN FOR INPATIENT GLYCEMIC CONTROL: * Hold outpatient oral diabetes medications * Basal insulin * NPH 20 units (0.33units/kg) daily w/ morning dexamethasone 6mg IV * Lantus 3 units SQ HS * Bolus insulin * NovoLog per scale ACHS or Q6hrs while NPO * Goal Range: Low 110 mg/dL - High 140 mg/dL * Correction Factor: 20 mg/dL/unit with breakfast and lunch, 40mg/dL/unit with dinner and HS and only cover for BSG above 180mg/dL * Nutritional / Prandial insulin per carb ratio of 1 unit per 6 grams CHO consumed with breakfast and lunch, 1 unit per 8gm CHO w/ dinner and HS
[2020-08-28] MEDS: INSULIN GLARGINE SOLOSTAR 100 UNITS/ML 3 ML PEN SC SCH (20:29)
--- NOTE | 2020-08-28 20:33 | Hospitalist Progress Note ---
Date of Service August 28, 2020 Assessment & Plan (1) Pneumonia due to COVID-19 virus: Acute respiratory failure with hypoxia COVID-19 pneumonia SARS-CoV-2 PCR positive. -? Mucous plugging Vs intrapulmonary shunt -Possible secondary bacterial pneumonia -Chronic Right Hemidiaphragmatic elevation -CTA:No evidence of acute pulmonary embolism. Bilateral lower lobe bronchial wall thickening and mucous plugging with basilar atelectasis. Metallic projectile fragment within the right lower lobe. Elevation of the right hemidiaphragm CRP 15.1 Procalcitonin 0.14> 1.52 D-Dimer trended down -convalescent plasma less likely beneficial given duration of illness. -Completed 5-day course of remdesivir -To complete 10-day course of dexamethasone tomorrow -Requiring 2 L of oxygen to maintain saturations -Continue Vibration vest, hypertonic saline Nebs -Encourage frequent proning -Appreciate Pulmonology Input -Continue empiric antibiotics -Respiratory status improved today -Chest x-ray today showed mild basilar atelectasis -Needs 2 step prior to discharge (2) Acute respiratory failure with hypoxia: Management as above (3) HTN (hypertension): BP Variable Continue amlodipine. (4) Diabetes: HbA1C:9.8 Hypoglycemic Episode, Now hyperglycemic BGs very Variable likely due to steroids Continue Lantus / NovoLog per protocol. Consulted Pharmacy for Glycemic Management (5) Seizure disorder: Continue levetiracetam and divalproex sodium. (6) Dementia: Monitor for delirium. (7) DVT prophylaxis: Lovenox SQ (8) Discharge planning issues: Expect to discharge back to [facility] when medically stable. Admission and Anticipated Discharge Date Admission Date: August 19, 2020 Subjective Patient is seen and examined at bedside Poor historian Sleeping comfortably during my encounter Respiratory status much improved today Saturating low 90s on 2 L supplemental oxygen [facility] guards at bedside Blood glucose levels variable Review of Systems Review of Systems: All systems reviewed & are unremarkable except as noted in HPI & below Physical Exam Physical Exam: Physical Exam: Vitals signs as noted above General Appearance:Moderately built and nourished, no apparent distress Head: normocephalic, Atraumatic Eyes: normal inspection, EOMI Neck: supple, Trachea midline Respiratory/Chest: Decreased breath sounds, CTA Cardiovascular: S1, S2, No murmur Abdomen/GI:Soft, Non tender, Bowel sounds present Extremities/Musculoskelatal:normal inspection, no edema Neurologic/Psych:AA, grossly no focal neurological deficits Skin: normal color, warm Results & Data Results & Data ([facility]) Vital Signs (Past 12 Hours) Vital Signs Temp Pulse Pulse Pulse Resp BP Pulse Ox 08/28/20 19:16 76 20 93 08/28/20 17:49 93 08/28/20 17:03 70 08/28/20 16:00 36.6 C 79 24 147/93 H 95 08/28/20 15:54 08/28/20 14:30 100 08/28/20 12:19 36.7 C 75 20 135/66 99 08/28/20 11:44 72 22 95 Pulse Ox 08/28/20 19:16 08/28/20 17:49 08/28/20 17:03 08/28/20 16:00 08/28/20 15:54 98 08/28/20 14:30 08/28/20 12:19 08/28/20 11:44 Laboratory Results Short CBC 08/28/20 Range/Units 06:53 WBC 12.36 H (4.8-10.8) K/uL Hgb 10.4 L (14.0-18.0) g/dL Hct 30.7 L (42-52) % Plt Count 262 (130-400) K/uL BMP 08/28/20 06:53 Sodium 137 Potassium 4.5 Chloride 102 Carbon Dioxide 33 H BUN 53 H Creatinine 0.98 Glucose 69 L Calcium 8.5 (1) Dementia Dementia behavioral disturbance: without behavioral disturbance Dementia type: unspecified type Qualified Code(s): F03.90 - Unspecified dementia without behavioral disturbance
[2020-08-28] MEDS: diphenhydrAMINE Capsule 25 MG CAP PO SCH (20:35)
[2020-08-29] MEDS: LEVOTHYROXINE SODIUM 50 MCG TABLET PO SCH (05:30)
[2020-08-29 06:15] LABS: Basophils # (auto) 0.01 K/uL (0-0.2); Basophils % (auto) 0.1 %; Hematocrit (blood only) 28.9 % (42-52); Hemoglobin 9.4 g/dL (14.0-18.0); Immature Granulocytes % (auto) 1.9 %; Lymphocytes # (auto) 0.94 K/uL (1.2-3.4); Mean Corpuscular Hemoglobin 33.6 pg (25-34); Mean Corpuscular Hgb Conc 32.5 g/dL (32-36); Mean Corpuscular Volume 103.2 fL (80-100); Mean Platelet Volume 12.7 fL (7.4-10.4); Monocytes # (auto) 0.87 K/uL (0.11-0.59); Monocytes % (auto) 8.4 %; Neutrophils # (auto) 8.37 K/uL (1.4-6.5); Neutrophils % (auto) 80.6 %; Nucleated RBC # (auto) 0.04 K/uL (0-0); Nucleated RBC % (auto) 0.4 %; Platelet Count 227 K/uL (130-400); RDW Coefficient of Variation 13.7 % (11.5-14.5); RDW Standard Deviation 52.1 fL (36.4-46.3); White Blood Count 10.39 K/uL (4.8-10.8)
[2020-08-29 07:02] LABS: BUN Creatinine Ratio 53.4 (10-20); Calcium 8.5 mg/dl (8.5-10.1); Creatinine Clr Calc Pharmacy 54.9 ml/min; Est GFR (African American) 92.6; Est GFR (Non-African American) 79.9; Magnesium 2.6 mg/dl (1.8-2.4); Potassium 5.1 mmol/L (3.5-5.1)
[2020-08-29] MEDS: SODIUM CHLOR 7% 4 ML NEB NEB SCH (07:10)
[2020-08-29] MEDS: INSULIN ASPART 100 UNITS/ML 3 ML PEN SC SCH ×2 (08:30→13:00)
[2020-08-29] MEDS: cefTRIAXone SODIUM 1,000 MG in DEXTROSE 5% 50 ML IV SCH (08:55)
[2020-08-29] MEDS: DOXYCYCLINE HYCLATE 100 MG CAP PO SCH (08:58)
[2020-08-29] MEDS: ASPIRIN 81 MG ECTAB PO SCH (08:58)
[2020-08-29] MEDS: amLODIPine BESYLATE 5 MG TAB PO SCH (08:58)
[2020-08-29] MEDS: DONEPEZIL HCL 10 MG TAB PO SCH (08:59)
[2020-08-29] MEDS: levETIRAcetam 500 MG TAB PO SCH (09:00)
[2020-08-29] MEDS: dexAMETHasone 6 MG in SYRINGE 0 ML IV SCH (09:01)
[2020-08-29] MEDS: ENOXAPARIN INJ 30 MG/0.3 ML SYR SQ SCH (09:01)
[2020-08-29] MEDS: INSULIN HUMAN NPH SC SCH (09:01)
[2020-08-29] MEDS: DOCUSATE SODIUM/SENNA 50/8.6MG TAB PO SCH (09:57)
[2020-08-29] MEDS: DIVALPROEX DELAY RELEASE 500 MG TAB PO SCH (09:57)
--- NOTE | 2020-08-29 11:41 | Hospitalist Progress Note ---
Date of Service August 29, 2020 Assessment & Plan (1) Pneumonia due to COVID-19 virus: Acute respiratory failure with hypoxia COVID-19 pneumonia SARS-CoV-2 PCR positive. -? Mucous plugging Vs intrapulmonary shunt -Possible secondary bacterial pneumonia -Chronic Right Hemidiaphragmatic elevation -CTA:No evidence of acute pulmonary embolism. Bilateral lower lobe bronchial wall thickening and mucous plugging with basilar atelectasis. Metallic projectile fragment within the right lower lobe. Elevation of the right hemidiaphragm CRP 15.1 Procalcitonin 0.14> 1.52 D-Dimer trended down -convalescent plasma less likely beneficial given duration of illness. -Completed 5-day course of remdesivir -To complete 10-day course of dexamethasone today -Requiring 2 L of oxygen to maintain saturations -Continue Vibration vest, hypertonic saline Nebs -Encourage frequent proning -Appreciate Pulmonology Input -Continue empiric antibiotics -Chest x-ray today showed mild basilar atelectasis -Needs 2 step prior to discharge (2) Acute respiratory failure with hypoxia: Management as above (3) HTN (hypertension): BP Variable Continue amlodipine. (4) Diabetes: HbA1C:9.8 Hypoglycemic Episode, Now hyperglycemic BGs very Variable likely due to steroids Continue Lantus / NovoLog per protocol. Pharmacy for Glycemic Management (5) Seizure disorder: Continue levetiracetam and divalproex sodium. (6) Dementia: Monitor for delirium. (7) DVT prophylaxis: Lovenox SQ (8) Discharge planning issues: Expect to discharge back to [facility] when medically stable. Down to 2 L NC and Dex and Remdesivir completed today, DC later today or tomorrow +- O2 Labs checked, WBCs now normal, Hb down sec to COVID ROS-No Headache, No Visual Changes, No Nausea, No Vomiting, No Fever, No Chills, No Neck Pain or Stiffness, No Chest Pain, No Palpitations, No SOB, No VAZQUEZ, No Cough, No Sputum, No Wheezing, No Abdominal Pain, No Diarrhea, No Hematemesis, No Hemoptysis, No Unexpected Weight Loss, No Flank pain, No Melena, No Hematochezia, No Frequency, No Urgency, No Burning, No Hematuria, No Rashes, No Diaphoresis. Appetite is Normal Physical Exam Gen-NAD, Afebrile Head-NCAT, EOMI, PERRLA, Anicteric Sclera, No Posterior Pharyngeal Erythema Neck-Supple, No JVD, No Thyromegaly, No Masses, No LAD, No Bruits Lungs-Clear to Auscultation Bilaterally, No Rales, No Rhonchi, No Wheezing, No Crepitus Chest-No S4, +S1, +S2, No S3, No Murmurs, No Rubs, No Gallops, No Ectopy Abdomen-Soft, Bowel Sounds Present, Non Tender, Non Distended, No Hepatomegaly, No Splenomegaly, No Palpable Masses, No Rebound, No Rigidity, No Guarding Musculoskeletal-Full Range of Motion Bilaterally, No CVAT Extremities-No Cyanosis, No Clubbing, No Edema Nuero-Cranial Nerves II-XII grossly intact, Motor WNL, DTRs WNL, Strength WNL, Non Focal Psych-Cooperative Admission and Anticipated Discharge Date Admission Date: August 19, 2020 Results & Data Results & Data ([facility]) Vital Signs (Past 12 Hours) Vital Signs Temp Pulse Pulse Resp BP Pulse Ox 08/29/20 07:33 36.4 C L 54 L 18 116/64 93 08/29/20 07:10 61 17 93 08/29/20 04:26 50 L 14 140/61 96 (1) Dementia Dementia behavioral disturbance: without behavioral disturbance Dementia type: unspecified type Qualified Code(s): F03.90 - Unspecified dementia without behavioral disturbance
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
[2020-08-30] MEDS ORDERED: INSULIN ASPART 100 UNITS/ML 3 ML PEN SC SCH (07:30)
[2020-08-30] MEDS ORDERED: INSULIN GLARGINE SOLOSTAR 100 UNITS/ML 3 ML PEN SC SCH (09:00)
== END 2020-08-29 16:10 | DRG 177 ==
LOC: ED 09:59 → EDINP 15:11 → SUATTDRO 15:11 → 2E 15:15